=== PATIENT | female | born 1945 | race Caucasian/White ===

== ENCOUNTER 2019-01-05 22:26 | Observation (INO) ==
[2019-01-05] MEDS ORDERED: Bumetanide 1 MG/4 ML VIAL IVP ONE (23:07)
--- NOTE | 2019-01-05 23:11 | Emergency Department Note ---
Disposition Clinical Impression: Congestive heart failure Qualifiers: Heart failure type: diastolic Heart failure chronicity: acute on chronic Qualified Code(s): I50.33 - Acute on chronic diastolic (congestive) heart failure Disposition: Admitted As Inpatient Condition: Good Referrals: Carla Mo MD [Primary Care Provider] - Forms: ED Satisfaction Letter Time of Disposition: 00:42 SOB HPI - General Chief Complaint: ED Shortness of Breath/Dyspnea Stated Complaint: SOB /WATER RETENTION Time Seen by Provider: 01/05/19 22:51 Source: patient, family Mode of arrival: private vehicle Limitations: physical limitation Nursing Notes Reviewed: Yes Vital Signs Reviewed: Yes - History of Present Illness Patient presents to the ED complaining of fluid retention with lower extremity swelling and shortness of breath. States she has had progressive swelling in her legs over the past 2 weeks with a total of a 20 pound weight gain. She started feeling short of breath around 5 PM this evening. She denies any chest pain. She has a history of CHF and has been on Bumex 1 mg daily for approximately a year and a half with no dose changes. She states she tried taking 2 tablets at a time for a few days earlier this week but it did not seem to make a difference. She has not seen her primary care doctor. Family brought her to the ED this evening after she started having some shortness of breath. She denies any associated URI symptoms. No fever or chills. She denies any orthopnea or PND although she states she did have orthopnea when she was first diagnosed with CHF. History is notable for A. fib, high blood pressure, CHF, GERD and hyperlipidemia. She states she used to see Dr. Little and cardiology right after she was diagnosed with CHF and A. fib but has not seen him recently. Her PCP manages her Bumex and other medications. - Related Data Home Medications Medication Instructions Recorded Confirmed Atenolol [Tenormin] 25 mg PO BID 12/26/15 04/20/17 Hydrocodone/Acetaminophen [[place] 1 tab PO Q6H PRN 12/26/15 01/05/19 7.5-325 Tablet] Loratadine [Claritin] 10 mg PO DAILY PRN 12/26/15 01/05/19 Lovastatin [Mevacor] 20 mg PO HS 12/26/15 01/05/19 Oxybutynin Chloride [Ditropan Xl] 10 mg PO DAILY 12/26/15 01/05/19 Apixaban [Eliquis] 5 mg PO DAILY 06/09/17 01/05/19 Previous Rx's Medication Instructions Recorded Bumetanide [Bumex] 1 mg PO DAILY #30 tablet 04/21/17 Lisinopril [Zestril] 40 mg PO DAILY #30 tablet 04/21/17 Allergies Allergy/AdvReac Type Severity Reaction Status Date / Time codeine Allergy Difficulty Verified 01/05/19 22:29 Breathing Cortisone Allergy Rash Verified 01/05/19 22:29 prednisone Allergy Rash Verified 01/05/19 22:29 Constitutional: Denies: fever, chills, weakness, weight change Eyes: Denies: eye pain, eye discharge, vision change ENT ED: Denies: ear pain, throat pain, dental pain, hearing loss, epistaxis, congestion, dysphagia Cardiovascular: Reports: edema. Denies: chest pain, palpitations, dyspnea on exertion, syncope Respiratory: Reports: as per HPI, dyspnea. Denies: cough, wheezes, hemoptysis, stridor Gastrointestinal: Denies: abdominal pain, nausea, vomiting, diarrhea, constipation, hematemesis, melena, hematochezia Genitourinary: Denies: dysuria, frequency, hematuria, discharge Musculoskeletal: Denies: back pain, neck pain, arthralgia, myalgia Integumentary: Denies: rash, abrasion, lesions Neurological: Denies: headache, weakness, numbness, paresthesias, confusion, abnormal gait, vertigo Psychiatric: Denies: anxiety, depression, suicidal thoughts, homicidal thoughts, auditory hallucinations, visual hallucinations Endocrine: Denies: fatigue Hematological/Lymphatic: Denies: easy bleeding, easy bruising Allergic/Immunologic: Denies: facial swelling, urticaria Past Medical History - Past Medical History Medical history: Reports: atrial fibrillation, GERD, hyperlipidemia, hypertension Surgical history: Reports: other Psychiatric history: Reports: no psych history 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 - Social History Smoking Status: Never smoker Smokeless Tobacco Status: No Alcohol use: Reports: none Drug use: Reports: none Physical Exam - General Limitations: physical limitation General appearance: alert, in no apparent distress - Head Head exam: atraumatic, normocephalic, normal inspection - Eye Eye exam: Present: normal appearance, PERRL, EOMI - ENT ENT exam: normal exam, normal oropharynx, mucous membranes moist - Neck Neck exam: Present: normal inspection, full ROM, trachea midline - Chest Chest inspection: Present: normal inspection, symmetric chest wall rise - Respiratory Respiratory exam: Present: normal lung sounds bilaterally - Cardiovascular Cardiovascular exam: Present: regular rate, irregular rhythm, normal heart sounds - Abdominal Exam Abdominal exam: Present: soft, Non-Tender. Absent: tenderness, distention, guarding, rebound, rigidity - Extremities Exam Extremities exam: Present: normal inspection, full ROM, pedal edema (2+ to knees). Absent: tenderness - Neurological Exam Neurological exam: Present: alert, oriented X3 - Psychiatric Psychiatric exam: Present: normal affect, normal mood - Skin Skin exam: Present: warm, dry, intact, normal color Course Course Narrative: Agent presents to the ED at 2 weeks of progressive leg swelling now with some shortness of breath with a history of heart failure on Bumex. On arrival she is afebrile, hemodynamic stable and nontoxic in appearance. EKG on arrival shows simply rate-controlled A. fib at a rate of 71. Physical exam reveals significant edema in the legs but lungs are clear and she is not in any respiratory distress. Will obtain chest x-ray and lab work. We will give a dose of IV Bumex in the meantime. - Reevaluation(s) Reevaluation #1: Situation is cardiomegaly but no pulmonary edema. Laboratory studies show a normal troponin but an elevated BNP in the 300s. No other acute abnormalities. She has not started diuresing yet since receiving IV Bumex but I feel that she would benefit from admission with continued IV diuretics. Discussed this with patient family and she is in agreement. I spoke to the hospital some call, Dr. Bla who has agreed to accept the patient. Time: 00:37 Vital Signs Temperature 98.8 F 01/05/19 22:31 Pulse Rate 66 01/05/19 22:31 Respiratory Rate 24 01/05/19 22:31 Blood Pressure 153/74 01/05/19 22:31 O2 Sat by Pulse Oximetry 97 01/05/19 22:31 Temperature 98.7 F 01/05/19 23:28 Pulse Rate 68 01/05/19 23:28 Respiratory Rate 20 01/05/19 23:28 Blood Pressure 134/78 01/05/19 23:28 O2 Sat by Pulse Oximetry 98 01/05/19 23:28 Oxygen Delivery Oxygen Delivery Room Air Shortness of Breath/Dyspnea - Differential Diagnosis Likely: congestive heart failure - Medical Records Medical records reviewed: Yes I reviewed the patient's medical records. - Lab Data Lab results reviewed: Yes I reviewed the patient's lab results. Result diagrams: 01/05/19 23:10 01/05/19 23:10 Lab Results 01/05/19 01/05/19 01/05/19 Range/Units 23:10 23:10 23:10 WBC 6.8 (4.3-11.1) K/mcL RBC 4.22 (3.82-4.97) M/mcL Hgb 12.6 (11.5-15.4) g/dL Hct 40.3 (35.3-44.9) % MCV 95.5 (83.0-100.0) fL MCH 29.9 (28.0-33.3) pg MCHC 31.3 L (31.6-35.5) g/dL RDW 13.1 (11.5-14.5) % Plt Count 139 L (140-400) K/mcL MPV 11.2 (9.4-12.4) fL Immature Gran % 0.3 (0-4) % Seg Neutrophils % 64.6 % Lymphocytes % 28.1 % Monocytes % 5.4 % Eosinophils % 1.0 % Basophils % 0.6 % Neutrophils # 4.4 (1.6-8.9) K/mcL Lymphocytes # 1.9 (0.6-4.6) K/mcL Monocytes # 0.4 (0.0-1.3) K/mcL Eosinophils # 0.1 (0.0-0.6) K/mcL Basophils # 0.0 (0.0-0.2) K/mcL PT (9.4-12.1) Seconds INR Sodium 141 (136-145) mEq/L Potassium 4.4 (3.5-5.1) mEq/L Chloride 106 (98-107) mEq/L Carbon Dioxide 29 (23-29) mEq/L BUN 36 H (8-23) mg/dL Creatinine 1.16 (0.60-1.20) mg/dL Est GFR ( Amer) 56 L (> 60) Est GFR (Non-Af Amer) 46 L (> 60) BUN/Creatinine Ratio 31 H (6-26) Glucose 139 H (70-105) mg/dL Calculated Osmolality 303 H (280-300) Calcium 9.7 (8.6-10.3) mg/dL Total Bilirubin 0.4 (0.3-1.0) mg/dL AST 15 (13-39) Units/L ALT 11 (7-52) Units/L Alkaline Phosphatase 60 (34-104) Units/L Troponin I < 0.03 (< 0.04) ng/mL B-Natriuretic Peptide (Less than 100) pg/mL Serum Total Protein 6.5 (6.4-8.9) g/dL Albumin 4.0 (3.5-5.7) g/dL Globulin 2.5 (2.4-3.5) g/dL Albumin/Globulin Ratio 1.6 (1.1-2.2) 01/05/19 01/05/19 Range/Units 23:10 23:10 WBC (4.3-11.1) K/mcL RBC (3.82-4.97) M/mcL Hgb (11.5-15.4) g/dL Hct (35.3-44.9) % MCV (83.0-100.0) fL MCH (28.0-33.3) pg MCHC (31.6-35.5) g/dL RDW (11.5-14.5) % Plt Count (140-400) K/mcL MPV (9.4-12.4) fL Immature Gran % (0-4) % Seg Neutrophils % % Lymphocytes % % Monocytes % % Eosinophils % % Basophils % % Neutrophils # (1.6-8.9) K/mcL Lymphocytes # (0.6-4.6) K/mcL Monocytes # (0.0-1.3) K/mcL Eosinophils # (0.0-0.6) K/mcL Basophils # (0.0-0.2) K/mcL PT 15.0 H (9.4-12.1) Seconds INR 1.3 Sodium (136-145) mEq/L Potassium (3.5-5.1) mEq/L Chloride (98-107) mEq/L Carbon Dioxide (23-29) mEq/L BUN (8-23) mg/dL Creatinine (0.60-1.20) mg/dL Est GFR ( Amer) (> 60) Est GFR (Non-Af Amer) (> 60) BUN/Creatinine Ratio (6-26) Glucose (70-105) mg/dL Calculated Osmolality (280-300) Calcium (8.6-10.3) mg/dL Total Bilirubin (0.3-1.0) mg/dL AST (13-39) Units/L ALT (7-52) Units/L Alkaline Phosphatase (34-104) Units/L Troponin I (< 0.04) ng/mL B-Natriuretic Peptide 309 H (Less than 100) pg/mL Serum Total Protein (6.4-8.9) g/dL Albumin (3.5-5.7) g/dL Globulin (2.4-3.5) g/dL Albumin/Globulin Ratio (1.1-2.2) - Radiology Data Radiology results reviewed: Yes I reviewed the patient's radiology results. ITS Impressions Chest X-Ray 01/05/19 22:43 IMPRESSION: No acute abnormality detected. D/ / Parrish Balderas MD / Parrish Balderas MD Interpreting Provider: Parrish Balderas MD - EKG Data EKG attestation: Yes I reviewed and interpreted this EKG. Rate: Reports: normal Rhythm: Reports: A.Fib Voltage: Reports: decreased voltage throughout Interpretation: Reports: no acute changes
[2019-01-05 23:25] LABS: Basophils % 0.6 %; Eosinophils # 0.1 K/mcL (0.0-0.6); Hematocrit 40.3 % (35.3-44.9); Hemoglobin 12.6 g/dL (11.5-15.4); Immature Granulocytes % 0.3 % (0-4); Lymphocytes # 1.9 K/mcL (0.6-4.6); Lymphocytes % 28.1 %; Mean Corpuscular HGB Conc 31.3 g/dL (31.6-35.5); Mean Corpuscular Hemoglobin 29.9 pg (28.0-33.3); Mean Corpuscular Volume 95.5 fL (83.0-100.0); Mean Platelet Volume 11.2 fL (9.4-12.4); Monocytes # 0.4 K/mcL (0.0-1.3); Monocytes % 5.4 %; Neutrophils # 4.4 K/mcL (1.6-8.9); Platelet Count 139 K/mcL (140-400); Red Blood Count 4.22 M/mcL (3.82-4.97); Red Cell Distribution Width 13.1 % (11.5-14.5); Segmented Neutrophils % 64.6 %; White Blood Count 6.8 K/mcL (4.3-11.1)
[2019-01-05 23:43] LABS: Albumin/Globulin Ratio 1.6 (1.1-2.2); Bilirubin,Total 0.4 mg/dL (0.3-1.0); Calcium 9.7 mg/dL (8.6-10.3); Globulin 2.5 g/dL (2.4-3.5); Potassium 4.4 mEq/L (3.5-5.1); Total Protein 6.5 g/dL (6.4-8.9)
[2019-01-05 23:50] LABS: INR 1.3
[2019-01-06] MEDS ORDERED: Naloxone 0.4 MG/ML INJ IVP PRN ×2 (00:38→01:13)
[2019-01-06] MEDS ORDERED: Loratadine 10 MG TABLET PO PRN (01:13)
[2019-01-06] MEDS ORDERED: *HR* HYDROcodone/Acet 7.5/325 mg TABLET PO PRN (01:13)
[2019-01-06] MEDS ORDERED: Lisinopril 20 MG TABLET PO SCH (09:00)
[2019-01-06] MEDS ORDERED: Apixaban 5 MG TABLET PO SCH (09:00)
[2019-01-06 10:34] VITALS: BP 153/63
--- NOTE | 2019-01-06 14:26 | Internal Med History&Physical ---
Date of Encounter: 01/06/19 Time of Encounter: 13:50 Assessment and Plan (1) Congestive heart failure Current visit: Yes Status: Chronic She was given IV Lasix on admission. Lisinopril and beta francesco will be continued. Imdur will be added. Qualifiers: Heart failure type: diastolic Heart failure chronicity: acute on chronic Qualified Code(s): I50.33 - Acute on chronic diastolic (congestive) heart failure (2) CKD (chronic kidney disease) stage 3, GFR 30-59 ml/min Current visit: Yes Status: Chronic Estimated GFR minimally changed since May 2017 hospitalization. (3) Hypertension Current visit: No Status: Chronic Continue lisinopril and Tenormin. Qualifiers: Hypertension type: essential hypertension Qualified Code(s): I10 - Essential (primary) hypertension Internal Medicine - H&P: HPI Chief complaint: Dyspnea, edema Admitted From: Emergency Dept Plans for Post Hospital Care: Home History of present illness: Ms. Smith is a 73 year old female who came to emergency room stating she had onset of worsening edema approximately 2 weeks earlier. She used occasional additional Bumex with minimal relief. She reports developing dyspnea ap proximately 5 PM the day of admission. When symptoms did not improve after a few hours she came to emergency room. She was felt to have exacerbation of heart failure and was admitted to [facility] floor for ongoing care needs. Cardiac history is pertinent for hypertension. Echocardiogram 04/21/2017 showed LVEF of 55-60%. The interventricular septum and posterior wall thickness measurements were elevated at 1.40 cm. each. E/A ratio was 0.9. Regadenoson EST 05/14/2017 showed LVEF of 70% with no EKG or perfusion evidence of ischemia. She denies DVT or pulmonary embolus. She states she feels significantly improved at the present time and wishes to be discharged home. Past Med Surg Social Fam HX - Past Medical History Medical history: atrial fibrillation, GERD, hyperlipidemia, hypertension Psychiatric history: no psych history - Past Surgical History Surgical History: other Additional surgical history: tubal - Social History Smoking Status: Never smoker Smokeless Tobacco Status: No Alcohol use: none Drug use: none - Family History Father Living Status: Cause of : Lung Ca. Hx Family Cancer: Yes Hx Family Endocrine Disorder: Yes (DM) Brother Hx Family Endocrine Disorder: Yes (DM) Internal Medicine - H&P: Meds Atenolol [Tenormin] 25 mg PO BID 12/26/15 [History] Hydrocodone/Acetaminophen [[place] 7.5-325 Tablet] 1 tab PO Q6H PRN 12/26/15 [History] Loratadine [Claritin] 10 mg PO DAILY PRN 12/26/15 [History] Lovastatin [Mevacor] 20 mg PO HS 12/26/15 [History] Oxybutynin Chloride [Ditropan Xl] 10 mg PO DAILY 12/26/15 [History] Bumetanide [Bumex] 1 mg PO DAILY #30 tablet 04/21/17 [Rx] Lisinopril [Zestril] 40 mg PO DAILY #30 tablet 04/21/17 [Rx] Apixaban [Eliquis] 5 mg PO DAILY 06/09/17 [History] Allergy/AdvReac Type Severity Reaction Status Date / Time codeine Allergy Difficulty Verified 01/05/19 22:29 Breathing Cortisone Allergy Rash Verified 01/05/19 22:29 prednisone Allergy Rash Verified 01/05/19 22:29 All Systems PM: A 10-system review of systems was performed and is negative for pertinent findings except as documented above in the HPI. Review of systems: Gen.: Her weight is increased from 135.17 kg on 04/20/2017 to 141.84 kg today. Cardiovascular: As per history of present illness Respiratory: She is a lifelong nonsmoker and has no known chronic lung disease GI: She denies disorders of her liver gallbladder or exocrine pancreas : She denies hematuria dysuria or kidney stones. She has had frequent UTIs Neurologic: She denies large distribution strokes or seizures Endocrine: She has hyperlipidemia but denies diabetes or thyroid disease Hematology/oncology: She denies blood disorders cancers or anemia Psychiatric: She denies anxiety depression or other mental health issues [place] skeletal: She has DJD but denies gout or other bone joint or muscle disorders. - Constitutional Vitals: Temp Pulse Resp BP Pulse Ox 97.8 F 75 18 153/63 96 01/06/19 10:33 01/06/19 10:33 01/06/19 10:33 01/06/19 10:33 01/06/19 10:33 Exam: Gen.: She is a well-developed overweight female lying in bed who appears in no acute distress at present time. She denies pain or dyspnea. HEENT: Head is atraumatic and normocephalic. Eyes: EOMI. There is no scleral icterus. Mouth: Mucosa is moist. Neck: Supple and nontender. There is no thyromegaly or adenopathy noted. Heart: Regular without murmurs gallops or ectopics Lungs: No wheezes or crackles are heard. Abdomen: Soft and nontender. No masses or guarding are noted. Extremities: She has significant adiposity of her legs and feet. There is trace to 1+ pitting edema of the dorsum of the feet bilaterally. Dorsalis pedis and posterior tibial pulses are nonpalpable. She has mild DJD changes of her hands. Neurologic: Mental status: She is talkative and a good historian. Cranial nerves: Smile is symmetric. Forehead wrinkles bilaterally. Tongue protrudes midline. EOMI. Motor: There is no pronator drift. Cerebellar: Finger to nose is intact bilaterally. Skin: Warm and dry Internal Med - H&P Results - Labs CBC & Chem 7: 01/05/19 23:10 01/05/19 23:10 Labs: Short CBC 01/05/19 Range/Units 23:10 WBC 6.8 (4.3-11.1) K/mcL Hgb 12.6 (11.5-15.4) g/dL Hct 40.3 (35.3-44.9) % Plt Count 139 L (140-400) K/mcL Neutrophils # 4.4 (1.6-8.9) K/mcL BMP 01/05/19 23:10 Sodium 141 Potassium 4.4 Chloride 106 Carbon Dioxide 29 BUN 36 H Creatinine 1.16 Glucose 139 H Calcium 9.7 Cardiac Enzymes 01/05/19 Range/Units 23:10 Troponin I < 0.03 (< 0.04) ng/mL Liver Function 01/05/19 Range/Units 23:10 Total Bilirubin 0.4 (0.3-1.0) mg/dL AST 15 (13-39) Units/L ALT 11 (7-52) Units/L Alkaline Phosphatase 60 (34-104) Units/L Albumin 4.0 (3.5-5.7) g/dL - Impressions ITS Impressions Chest X-Ray 01/05/19 22:43 IMPRESSION: No acute abnormality detected. D/ / Parrish Balderas MD / Parrish Balderas MD Interpreting Provider: Parrish Balderas MD - VTE Reasons for not Prescribing Prophylaxis: Not indicated-Anticoagulated or INR therapeutic
--- NOTE | 2019-01-06 14:36 | Discharge Summary ---
Orders not resulted at time of discharge: Pending orders 01/05/19 22:44 EKG [ECG 12 lead ECG] [ECG] Stat Date of Encounter: 01/06/19 Time of Encounter: 13:50 - Discharge Diagnosis (1) Congestive heart failure Priority: Primary Status: Chronic Qualifiers: Heart failure type: diastolic Heart failure chronicity: acute on chronic Qualified Code(s): I50.33 - Acute on chronic diastolic (congestive) heart failure (2) CKD (chronic kidney disease) stage 3, GFR 30-59 ml/min Priority: Secondary Status: Chronic (3) Hypertension Priority: Secondary Status: Chronic Qualifiers: Hypertension type: essential hypertension Qualified Code(s): I10 - Essential (primary) hypertension Hospital course: Ms. Smith is a 73 year old female who came to emergency room stating she had onset of worsening edema approximately 2 weeks earlier. She used occasional additional Bumex with minimal relief. She reports developing dyspnea approximately 5 PM the day of admission. When symptoms did not improve after a few hours she came to emergency room. She was felt to have exacerbation of heart failure and was admitted to [facility] for ongoing care needs. Initial orders were written by the emergency room physician. I saw her on January 06 and performed a history and physical and discharge. She was given a dose of IV Lasix and had over 2500 mL urine output. Her dyspnea resolved and she reported decrease in her leg edema. When I saw her the afternoon of January 06 she reported feeling significantly improved and wished to be discharged home which I felt was reasonable. She will be started on Imdur and continue her other cardiac medications. I told her she should check her blood pressure periodically at home and her PCP Dr. Mo can adjust medication doses as needed to assist blood pressure and heart failure control. I encouraged her to keep her feet elevated while at rest and follow a low-sodium diet. She will follow with her PCP Dr. Mo within 1 week. - Time Spent with Patient Total time spent providing and/or coordinating discharge services: - Discharge Medications Prescriptions: New Isosorbide MONOnitrate (24 HR) [Imdur] 30 mg PO DAILY #30 tab.er.24h Continued Lovastatin [Mevacor] 20 mg PO HS Loratadine [Claritin] 10 mg PO DAILY PRN PRN Reason: Allergy Symptoms Atenolol [Tenormin] 25 mg PO BID Hydrocodone/Acetaminophen [[place] 7.5-325 Tablet] 1 tab PO Q6H PRN PRN Reason: Pain Oxybutynin Chloride [Ditropan Xl] 10 mg PO DAILY Apixaban [Eliquis] 5 mg PO DAILY Bumetanide [Bumex] 1 mg PO DAILY #30 tablet Lisinopril [Zestril] 40 mg PO DAILY #30 tablet Home Medications: Atenolol [Tenormin] 25 mg PO BID 12/26/15 [History] Hydrocodone/Acetaminophen [[place] 7.5-325 Tablet] 1 tab PO Q6H PRN 12/26/15 [History] Loratadine [Claritin] 10 mg PO DAILY PRN 12/26/15 [History] Lovastatin [Mevacor] 20 mg PO HS 12/26/15 [History] Oxybutynin Chloride [Ditropan Xl] 10 mg PO DAILY 12/26/15 [History] Bumetanide [Bumex] 1 mg PO DAILY #30 tablet 04/21/17 [Rx] Lisinopril [Zestril] 40 mg PO DAILY #30 tablet 04/21/17 [Rx] Apixaban [Eliquis] 5 mg PO DAILY 06/09/17 [History] Isosorbide MONOnitrate (24 HR) [Imdur] 30 mg PO DAILY #30 tab.er.24h 01/06/19 [Rx] Allergies/Adverse Reactions: Allergy/AdvReac Type Severity Reaction Status Date / Time codeine Allergy Difficulty Verified 01/05/19 22:29 Breathing Cortisone Allergy Rash Verified 01/05/19 22:29 prednisone Allergy Rash Verified 01/05/19 22:29 Date of admission: 01/06/19 00:43 Primary care physician: Carla Mo - Constitutional Vitals: Temp Pulse Resp BP Pulse Ox 97.8 F 75 18 153/63 96 01/06/19 10:33 01/06/19 10:33 01/06/19 10:33 01/06/19 10:33 01/06/19 10:33 - Patient Status Disposition: Home, Self-Care Condition: Good - Discharge Instructions Follow Up With: Carla Mo MD [Primary Care Provider] - 1 week - Diet and Activity Activity: resume usual activities as tolerated Diet: low salt diet - VTE Reasons for not Prescribing Prophylaxis: Not indicated-Anticoagulated or INR therapeutic
--- NOTE | 2019-01-10 15:54 | Electrocardiograph Report ---
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
== END 2019-01-06 15:23 | disposition home or self-care (01) ==
LOC: INPPIK 22:26 → EMEROOPIK 22:26 → INPPIK 01-06 01:06
PROVIDERS: ADMIT Internal Medicine; ATTEND Internal Medicine

== ENCOUNTER 2020-10-31 14:19 | Inpatient (IN) ==
[2020-10-31] MEDS ORDERED: Piperacillin/Tazobactam 3.375 GM in Water for inj. (sterile) 20 ML IVP ONE (14:55)
[2020-10-31] MEDS ORDERED: 0.9 % Sodium Chloride 500 ML IVC ONE (14:57)
[2020-10-31] MEDS ORDERED: *HR* FentaNYL (PF) 100 MCG/2 ML VIAL IVP ONE (14:58)
[2020-10-31] MEDS ORDERED: Vancomycin 2,000 MG/520 ML IV.SOLN IVPB ONE (15:00)
[2020-10-31 15:09] LABS: Bilirubin,Urine Negative (Negative); Blood,Urine Negative (Negative); Clarity,Urine Clear (Clear); Color,Urine Yellow (Yellow); Glucose,Urine (UA) Normal (Normal); Ketones,Urine Negative (Negative); Leukocyte Esterase,Urine Trace (Negative); Nitrite,Urine Negative (Negative); PH,Urine 5.5 pH Units (5.0-8.0); Protein,Urine Negative (Neg-Trace); Urobilinogen,Urine Normal (Normal)
[2020-10-31 15:13] LABS: Bacteria,Urine Few per hpf (None-Few); Mucus,Urine Few per lpf (None-Few); Squamous Epithelial Cell,Urine Few per hpf (None-Few); WBC,Urine 0-3 per hpf (0-3)
[2020-10-31 15:21] LABS: Basophils % 0.2 %; Eosinophils % 0.2 %; Hematocrit 40.7 % (35.3-44.9); Hemoglobin 12.7 g/dL (11.5-15.4); Immature Granulocytes % 0.3 % (0-4); Lymphocytes % 9.4 %; Mean Corpuscular HGB Conc 31.2 g/dL (31.6-35.5); Mean Corpuscular Volume 96.2 fL (83.0-100.0); Mean Platelet Volume 11.5 fL (9.4-12.4); Monocytes # 0.3 K/mcL (0.0-1.3); Monocytes % 2.8 %; Neutrophils # 9.6 K/mcL (1.6-8.9); Platelet Count 122 K/mcL (140-400); Red Blood Count 4.23 M/mcL (3.82-4.97); Red Cell Distribution Width 13.1 % (11.5-14.5); Segmented Neutrophils % 87.1 %
[2020-10-31 15:24] LABS: VBG HCO3 26 mEq/L (21-27); VBG PCO2 43 mmHg (41-51); VBG PH 7.38 pH Units (7.32-7.42); VBG PO2 21 mmHg (25-50)
[2020-10-31 15:30] LABS: INR 1.4
[2020-10-31 15:33] LABS: Activated Partial Thrombo Time 31.4 Seconds (26.0-36.0)
[2020-10-31 15:42] LABS: Alanine Aminotransferase 12 Units/L (7-52); Albumin 4.2 g/dL (3.5-5.7); Albumin/Globulin Ratio 1.5 (1.1-2.2); Alkaline Phosphatase 59 Units/L (34-104); Aspartate Amino Transferase 14 Units/L (13-39); BUN/Creatinine Ratio 26 (6-26); Bilirubin,Direct 0.2 mg/dL (0.0-0.2); Bilirubin,Indirect 0.8 mg/dL (0.0-1.0); Blood Urea Nitrogen 36 mg/dL (8-23); Calcium 10.1 mg/dL (8.6-10.3); Carbon Dioxide 25 mEq/L (23-29); Chloride 107 mEq/L (98-107); Globulin 2.8 g/dL (2.4-3.5); Glucose 165 mg/dL (70-105); Magnesium 1.7 mg/dL (1.6-2.6); Osmolality,Calculated 302 (280-300); Phosphorous 1.7 mg/dL (2.7-4.5); Potassium 5.1 mEq/L (3.5-5.1); Sodium 140 mEq/L (136-145); Troponin I < 0.03 ng/mL (< 0.04); eGFR For African Americans 46 (> 60); eGFR For Non-African Americans 38 (> 60)
[2020-10-31] MEDS ORDERED: Naloxone 0.4 MG/ML INJ IVP PRN (16:30)
[2020-10-31] MEDS ORDERED: Ondansetron 4 MG/2 ML VIAL IVP PRN (16:30)
[2020-10-31] MEDS ORDERED: Loratadine 10 MG TABLET PO PRN (16:37)
[2020-10-31] MEDS: Apixaban 5 MG TABLET PO SCH (20:46)
[2020-10-31] MEDS: atenoloL 25 MG TABLET PO SCH (20:47)
[2020-10-31] MEDS: *HR* HYDROcodone/Acet 7.5/325 mg TABLET PO PRN (20:54)
[2020-11-01 05:16] LABS: Basophils % 0.2 %; Eosinophils % 0.1 %; Hematocrit 36.5 % (35.3-44.9); Hemoglobin 11.4 g/dL (11.5-15.4); Immature Granulocytes % 0.6 % (0-4); Lymphocytes # 1.1 K/mcL (0.6-4.6); Mean Corpuscular HGB Conc 31.2 g/dL (31.6-35.5); Mean Corpuscular Hemoglobin 30.3 pg (28.0-33.3); Mean Corpuscular Volume 97.1 fL (83.0-100.0); Monocytes # 0.4 K/mcL (0.0-1.3); Monocytes % 4.6 %; Neutrophils # 7.1 K/mcL (1.6-8.9); Platelet Count 101 K/mcL (140-400); Red Blood Count 3.76 M/mcL (3.82-4.97); Red Cell Distribution Width 13.6 % (11.5-14.5); Segmented Neutrophils % 81.5 %; White Blood Count 8.7 K/mcL (4.3-11.1)
[2020-11-01 05:32] LABS: Calcium 9.3 mg/dL (8.6-10.3); Magnesium 1.9 mg/dL (1.6-2.6); Phosphorous 2.7 mg/dL (2.7-4.5); Potassium 4.7 mEq/L (3.5-5.1)
[2020-11-01] MEDS: *HR* HYDROcodone/Acet 7.5/325 mg TABLET PO PRN ×2 (06:48→20:10)
[2020-11-01] MEDS: atenoloL 25 MG TABLET PO SCH ×2 (08:57→20:11)
[2020-11-01] MEDS: Potassium Chloride Elixir 20 MEQ/15 ML UDC PO SCH (08:57)
[2020-11-01] MEDS: lisinopriL 20 MG TABLET PO SCH (08:57)
[2020-11-01] MEDS: Isosorbide MONOnitrate (24 HR) 30 MG TAB.ER.24H PO SCH (08:57)
[2020-11-01] MEDS: Bumetanide 1 MG TABLET PO SCH (08:57)
[2020-11-01] MEDS: Apixaban 5 MG TABLET PO SCH ×2 (08:57→20:11)
[2020-11-01] MEDS: Fluticasone Propionate Nasal 50 MCG/SPRAY BOTTLE NS SCH (08:58)
[2020-11-01] MEDS ORDERED: Piperacillin/Tazobactam 3.375 GM in 0.9 % Sodium Chloride Mini Bag 100 ML IVPB SCH (11:30)
[2020-11-01] MEDS: Acetaminophen 325 MG TABLET PO PRN (11:43)
[2020-11-01] MEDS ORDERED: Vancomycin 2,000 MG/520 ML IV.SOLN IVPB SCH (16:00)
[2020-11-01] MEDS: Piperacillin/Tazobactam 3.375 GM in 0.9 % Sodium Chloride Mini Bag 100 ML IVPB SCH (20:11)
[2020-11-02] MEDS: Piperacillin/Tazobactam 3.375 GM in 0.9 % Sodium Chloride Mini Bag 100 ML IVPB SCH (05:09)
[2020-11-02] MEDS: *HR* HYDROcodone/Acet 7.5/325 mg TABLET PO PRN ×2 (05:24→12:02)
[2020-11-02] MEDS: Potassium Chloride Elixir 20 MEQ/15 ML UDC PO SCH (07:37)
[2020-11-02] MEDS: Bumetanide 1 MG TABLET PO SCH (07:37)
[2020-11-02] MEDS: Isosorbide MONOnitrate (24 HR) 30 MG TAB.ER.24H PO SCH (07:37)
[2020-11-02] MEDS: Apixaban 5 MG TABLET PO SCH ×2 (07:37→20:26)
[2020-11-02] MEDS: Fluticasone Propionate Nasal 50 MCG/SPRAY BOTTLE NS SCH (07:38)
[2020-11-02] MEDS: lisinopriL 20 MG TABLET PO SCH (07:38)
[2020-11-02] MEDS: atenoloL 25 MG TABLET PO SCH ×2 (07:39→20:26)
[2020-11-02 07:44] LABS: Basophils % 0.2 %; Eosinophils % 0.3 %; Hematocrit 34.7 % (35.3-44.9); Hemoglobin 10.9 g/dL (11.5-15.4); Immature Granulocytes % 0.5 % (0-4); Lymphocytes # 1.2 K/mcL (0.6-4.6); Lymphocytes % 12.3 %; Mean Corpuscular HGB Conc 31.4 g/dL (31.6-35.5); Mean Corpuscular Hemoglobin 29.8 pg (28.0-33.3); Mean Corpuscular Volume 94.8 fL (83.0-100.0); Mean Platelet Volume 11.8 fL (9.4-12.4); Monocytes # 0.5 K/mcL (0.0-1.3); Monocytes % 5.1 %; Neutrophils # 7.9 K/mcL (1.6-8.9); Red Blood Count 3.66 M/mcL (3.82-4.97); Red Cell Distribution Width 13.1 % (11.5-14.5); Segmented Neutrophils % 81.6 %; White Blood Count 9.6 K/mcL (4.3-11.1)
[2020-11-02 08:05] LABS: Calcium 9.1 mg/dL (8.6-10.3)
[2020-11-02 08:10] LABS: Platelet Count 98 K/mcL (140-400)
[2020-11-02] MEDS: Sulfamethoxazole/Trimeth DS 1 EACH TABLET PO SCH (20:26)
[2020-11-02] MEDS: Doxycycline 100 MG CAPSULE PO SCH (20:26)
[2020-11-02] MEDS: Acetaminophen 325 MG TABLET PO PRN (22:44)
[2020-11-02] MEDS ORDERED: 0.9 % Sodium Chloride 1,000 ML IVC ONE ×2 (22:46→23:22)
[2020-11-03] MEDS: Apixaban 5 MG TABLET PO SCH ×2 (09:31→20:46)
[2020-11-03] MEDS: Potassium Chloride Elixir 20 MEQ/15 ML UDC PO SCH (09:31)
[2020-11-03] MEDS: lisinopriL 20 MG TABLET PO SCH (09:31)
[2020-11-03] MEDS: Isosorbide MONOnitrate (24 HR) 30 MG TAB.ER.24H PO SCH (09:31)
[2020-11-03] MEDS: Bumetanide 1 MG TABLET PO SCH (09:31)
[2020-11-03] MEDS: atenoloL 25 MG TABLET PO SCH ×2 (09:31→20:46)
[2020-11-03] MEDS: Doxycycline 100 MG CAPSULE PO SCH ×2 (09:31→20:46)
[2020-11-03] MEDS: Sulfamethoxazole/Trimeth DS 1 EACH TABLET PO SCH ×2 (09:31→20:46)
[2020-11-03] MEDS: Fluticasone Propionate Nasal 50 MCG/SPRAY BOTTLE NS SCH (09:35)
[2020-11-03] MEDS: *HR* HYDROcodone/Acet 7.5/325 mg TABLET PO PRN (20:46)
[2020-11-04 08:05] LABS: Basophils % 0.2 %; Eosinophils # 0.1 K/mcL (0.0-0.6); Eosinophils % 1.6 %; Hematocrit 35.6 % (35.3-44.9); Hemoglobin 11.2 g/dL (11.5-15.4); Immature Granulocytes % 0.5 % (0-4); Lymphocytes # 1.1 K/mcL (0.6-4.6); Lymphocytes % 18.1 %; Mean Corpuscular HGB Conc 31.5 g/dL (31.6-35.5); Mean Corpuscular Hemoglobin 29.9 pg (28.0-33.3); Mean Corpuscular Volume 94.9 fL (83.0-100.0); Mean Platelet Volume 11.4 fL (9.4-12.4); Monocytes # 0.5 K/mcL (0.0-1.3); Monocytes % 7.1 %; Neutrophils # 4.6 K/mcL (1.6-8.9); Platelet Count 120 K/mcL (140-400); Red Blood Count 3.75 M/mcL (3.82-4.97); Red Cell Distribution Width 12.7 % (11.5-14.5); Segmented Neutrophils % 72.5 %; White Blood Count 6.3 K/mcL (4.3-11.1)
[2020-11-04] MEDS: Potassium Chloride Elixir 20 MEQ/15 ML UDC PO SCH (08:05)
[2020-11-04] MEDS: Doxycycline 100 MG CAPSULE PO SCH (08:06)
[2020-11-04] MEDS: Apixaban 5 MG TABLET PO SCH (08:06)
[2020-11-04] MEDS: lisinopriL 20 MG TABLET PO SCH (08:06)
[2020-11-04] MEDS: Sulfamethoxazole/Trimeth DS 1 EACH TABLET PO SCH (08:06)
[2020-11-04] MEDS: atenoloL 25 MG TABLET PO SCH (08:06)
[2020-11-04] MEDS: Isosorbide MONOnitrate (24 HR) 30 MG TAB.ER.24H PO SCH (08:06)
[2020-11-04] MEDS: Bumetanide 1 MG TABLET PO SCH (08:07)
[2020-11-04] MEDS: Fluticasone Propionate Nasal 50 MCG/SPRAY BOTTLE NS SCH (08:07)
[2020-11-04 08:32] LABS: Calcium 9.4 mg/dL (8.6-10.3)
[2020-11-04 14:45] VITALS: BP 98/60
== END 2020-11-04 16:45 | disposition home health service (06) | DRG 603 ==
LOC: EMEROOPIK 14:19 → INPPIK 14:19
PROVIDERS: ADMIT Family Medicine; ATTEND Family Medicine

== ENCOUNTER 2020-11-14 06:20 | Observation (INO) ==
[2020-11-14 06:58] LABS: Basophils % 0.4 %; Eosinophils % 0.3 %; Hematocrit 37.4 % (35.3-44.9); Hemoglobin 11.9 g/dL (11.5-15.4); Immature Granulocytes % 0.4 % (0-4); Lymphocytes # 1.2 K/mcL (0.6-4.6); Lymphocytes % 10.6 %; Mean Corpuscular HGB Conc 31.8 g/dL (31.6-35.5); Mean Corpuscular Hemoglobin 29.9 pg (28.0-33.3); Mean Platelet Volume 11.1 fL (9.4-12.4); Monocytes # 0.4 K/mcL (0.0-1.3); Monocytes % 3.9 %; Platelet Count 251 K/mcL (140-400); Red Blood Count 3.98 M/mcL (3.82-4.97); Segmented Neutrophils % 84.4 %; White Blood Count 11.3 K/mcL (4.3-11.1)
[2020-11-14 07:00] LABS: Basophils # 0.1 K/mcL (0.0-0.2); Neutrophils # 9.5 K/mcL (1.6-8.9)
[2020-11-14 07:17] LABS: Albumin 3.3 g/dL (3.5-5.7); Albumin/Globulin Ratio 1.2 (1.1-2.2); Bilirubin,Total 0.9 mg/dL (0.3-1.0); Globulin 2.8 g/dL (2.4-3.5); Potassium 4.6 mEq/L (3.5-5.1); Total Protein 6.1 g/dL (6.4-8.9)
[2020-11-14 07:31] LABS: Bilirubin,Urine Negative (Negative); Blood,Urine Negative (Negative); Clarity,Urine Clear (Clear); Color,Urine Yellow (Yellow); Glucose,Urine (UA) Normal (Normal); Ketones,Urine Negative (Negative); Leukocyte Esterase,Urine Negative (Negative); Nitrite,Urine Negative (Negative); Protein,Urine Negative (Neg-Trace); Urobilinogen,Urine Normal (Normal)
[2020-11-14] MEDS ORDERED: 0.9 % Sodium Chloride 1,000 ML IVC ONE (08:03)
[2020-11-14] MEDS ORDERED: Naloxone 0.4 MG/ML INJ IVP PRN (08:21)
[2020-11-14 08:30] LABS: Amylase 13 Units/L (29-103); Lipase 18 Units/L (11-82)
[2020-11-14] MEDS: Ondansetron 4 MG/2 ML VIAL IVP PRN (15:41)
[2020-11-14] MEDS: Ringers Solution, Lactated 1,000 ML IVC SCH (15:48)
[2020-11-14] MEDS: *HR* Heparin 5,000 UNIT/ML VIAL SQ SCH ×2 (15:50→21:23)
[2020-11-15] MEDS: Ringers Solution, Lactated 1,000 ML IVC SCH (03:40)
[2020-11-15 04:10] LABS: Hematocrit 34.3 % (35.3-44.9); Hemoglobin 10.8 g/dL (11.5-15.4); Mean Corpuscular HGB Conc 31.5 g/dL (31.6-35.5); Mean Corpuscular Hemoglobin 30.2 pg (28.0-33.3); Mean Corpuscular Volume 95.8 fL (83.0-100.0); Mean Platelet Volume 11.4 fL (9.4-12.4); Platelet Count 197 K/mcL (140-400); Red Blood Count 3.58 M/mcL (3.82-4.97); Red Cell Distribution Width 13.2 % (11.5-14.5); White Blood Count 8.2 K/mcL (4.3-11.1)
[2020-11-15 04:27] LABS: Calcium 9.1 mg/dL (8.6-10.3); Magnesium 1.8 mg/dL (1.6-2.6); Potassium 4.5 mEq/L (3.5-5.1)
[2020-11-15] MEDS: *HR* Heparin 5,000 UNIT/ML VIAL SQ SCH ×2 (05:18→15:44)
[2020-11-15 07:19] VITALS: BP 119/60
[2020-11-15] MEDS: Ondansetron 4 MG/2 ML VIAL IVP PRN (11:03)
[2020-11-15] MEDS ORDERED: *HR* LORazepam 1 MG TABLET PO ONE (11:14)
== END 2020-11-15 16:35 | disposition other institution (70) ==
LOC: EMEROOPIK 06:20 → INPPIK 06:20
PROVIDERS: ADMIT Family Medicine; ATTEND Family Medicine

== ENCOUNTER 2020-11-15 12:25 | Inpatient (IN) ==
[2020-11-16 07:21] LABS: Basophils % 0.5 %; Eosinophils # 0.1 K/mcL (0.0-0.6); Eosinophils % 1.5 %; Hematocrit 37.7 % (35.3-44.9); Hemoglobin 11.5 g/dL (11.5-15.4); Immature Granulocytes % 0.5 % (0-4); Lymphocytes # 1.6 K/mcL (0.6-4.6); Lymphocytes % 24.7 %; Mean Corpuscular HGB Conc 30.5 g/dL (31.6-35.5); Mean Corpuscular Volume 98.4 fL (83.0-100.0); Mean Platelet Volume 11.2 fL (9.4-12.4); Monocytes # 0.4 K/mcL (0.0-1.3); Monocytes % 6.2 %; Neutrophils # 4.3 K/mcL (1.6-8.9); Platelet Count 201 K/mcL (140-400); Red Blood Count 3.83 M/mcL (3.82-4.97); Red Cell Distribution Width 13.2 % (11.5-14.5); Segmented Neutrophils % 66.6 %; White Blood Count 6.5 K/mcL (4.3-11.1)
[2020-11-16 07:41] LABS: Calcium 8.9 mg/dL (8.6-10.3); Potassium 4.4 mEq/L (3.5-5.1)
[2020-11-16] MEDS ORDERED: Ondansetron 4 MG/2 ML VIAL IVP PRN (09:47)
[2020-11-16] MEDS: Sennosides/Docusate Sodium TABLET PO SCH ×2 (10:51→19:48)
[2020-11-16] MEDS: atenoloL 25 MG TABLET PO SCH ×2 (10:52→19:48)
[2020-11-16] MEDS: Bumetanide 1 MG TABLET PO SCH (10:52)
[2020-11-16] MEDS: Isosorbide MONOnitrate (24 HR) 30 MG TAB.ER.24H PO SCH (10:52)
[2020-11-16] MEDS: Apixaban 5 MG TABLET PO SCH ×2 (10:52→19:47)
[2020-11-16] MEDS ORDERED: atenoloL 25 MG TABLET PO SCH (21:00)
[2020-11-17] MEDS: Ondansetron ODT 4 MG TAB.RAPDIS SL PRN ×2 (03:48→19:48)
[2020-11-17] MEDS: Isosorbide MONOnitrate (24 HR) 30 MG TAB.ER.24H PO SCH (10:55)
[2020-11-17] MEDS: Sennosides/Docusate Sodium TABLET PO SCH ×2 (10:55→19:49)
[2020-11-17] MEDS: Bumetanide 1 MG TABLET PO SCH (10:55)
[2020-11-17] MEDS: Apixaban 5 MG TABLET PO SCH ×2 (10:56→19:48)
[2020-11-17] MEDS: atenoloL 25 MG TABLET PO SCH ×2 (10:56→19:47)
[2020-11-18 07:30] LABS: Hematocrit 36.3 % (35.3-44.9); Hemoglobin 11.3 g/dL (11.5-15.4); Mean Corpuscular HGB Conc 31.1 g/dL (31.6-35.5); Mean Corpuscular Hemoglobin 29.6 pg (28.0-33.3); Mean Platelet Volume 10.8 fL (9.4-12.4); Platelet Count 188 K/mcL (140-400); Red Blood Count 3.82 M/mcL (3.82-4.97); Red Cell Distribution Width 12.8 % (11.5-14.5); White Blood Count 6.3 K/mcL (4.3-11.1)
[2020-11-18 07:51] LABS: Calcium 8.9 mg/dL (8.6-10.3); Potassium 3.7 mEq/L (3.5-5.1)
[2020-11-18] MEDS: Sennosides/Docusate Sodium TABLET PO SCH ×2 (09:05→21:51)
[2020-11-18] MEDS: atenoloL 25 MG TABLET PO SCH ×2 (09:05→21:51)
[2020-11-18] MEDS: Isosorbide MONOnitrate (24 HR) 30 MG TAB.ER.24H PO SCH (09:05)
[2020-11-18] MEDS: Bumetanide 1 MG TABLET PO SCH (09:05)
[2020-11-18] MEDS: Ondansetron ODT 4 MG TAB.RAPDIS SL PRN ×2 (09:05→15:56)
[2020-11-18] MEDS: Apixaban 5 MG TABLET PO SCH ×2 (09:06→21:52)
[2020-11-18] MEDS: Loratadine 10 MG TABLET PO PRN (09:09)
[2020-11-18] MEDS: *HR* HYDROcodone/Acet 7.5/325 mg TABLET PO PRN (21:54)
[2020-11-19] MEDS: Isosorbide MONOnitrate (24 HR) 30 MG TAB.ER.24H PO SCH (08:05)
[2020-11-19] MEDS: Ondansetron ODT 4 MG TAB.RAPDIS SL PRN ×2 (08:05→16:59)
[2020-11-19] MEDS: Sennosides/Docusate Sodium TABLET PO SCH ×2 (08:05→19:57)
[2020-11-19] MEDS: atenoloL 25 MG TABLET PO SCH ×2 (08:06→19:58)
[2020-11-19] MEDS: Apixaban 5 MG TABLET PO SCH ×2 (08:06→19:58)
[2020-11-19] MEDS: Bumetanide 1 MG TABLET PO SCH (08:06)
[2020-11-19] MEDS: Loratadine 10 MG TABLET PO PRN (08:13)
[2020-11-19] MEDS: *HR* HYDROcodone/Acet 7.5/325 mg TABLET PO PRN (15:18)
[2020-11-20] MEDS: Bumetanide 1 MG TABLET PO SCH (09:08)
[2020-11-20] MEDS: Sennosides/Docusate Sodium TABLET PO SCH ×2 (09:08→21:39)
[2020-11-20] MEDS: Apixaban 5 MG TABLET PO SCH ×2 (09:08→21:40)
[2020-11-20] MEDS: Isosorbide MONOnitrate (24 HR) 30 MG TAB.ER.24H PO SCH (09:08)
[2020-11-20] MEDS: Loratadine 10 MG TABLET PO SCH (09:08)
[2020-11-20] MEDS: atenoloL 25 MG TABLET PO SCH ×2 (09:08→21:39)
[2020-11-20] MEDS: Neosporin OINT 15 GM TUBE TP SCH (15:00)
[2020-11-20] MEDS: *HR* HYDROcodone/Acet 7.5/325 mg TABLET PO PRN (21:43)
[2020-11-21 04:25] LABS: Basophils # 0.1 K/mcL (0.0-0.2); Basophils % 0.8 %; Eosinophils # 0.1 K/mcL (0.0-0.6); Eosinophils % 2.1 %; Immature Granulocytes % 0.7 % (0-4); Lymphocytes % 31.8 %; Mean Corpuscular HGB Conc 31.4 g/dL (31.6-35.5); Mean Corpuscular Hemoglobin 29.8 pg (28.0-33.3); Mean Corpuscular Volume 94.9 fL (83.0-100.0); Mean Platelet Volume 11.8 fL (9.4-12.4); Monocytes # 0.5 K/mcL (0.0-1.3); Neutrophils # 3.5 K/mcL (1.6-8.9); Platelet Count 178 K/mcL (140-400); Red Blood Count 3.69 M/mcL (3.82-4.97); Red Cell Distribution Width 13.2 % (11.5-14.5); Segmented Neutrophils % 56.6 %; White Blood Count 6.1 K/mcL (4.3-11.1)
[2020-11-21 04:45] LABS: Calcium 9.1 mg/dL (8.6-10.3); Potassium 3.6 mEq/L (3.5-5.1)
[2020-11-21] MEDS: atenoloL 25 MG TABLET PO SCH ×2 (09:43→22:49)
[2020-11-21] MEDS: Loratadine 10 MG TABLET PO SCH (09:43)
[2020-11-21] MEDS: Apixaban 5 MG TABLET PO SCH ×2 (09:43→22:48)
[2020-11-21] MEDS: Sennosides/Docusate Sodium TABLET PO SCH ×2 (09:43→22:49)
[2020-11-21] MEDS: Isosorbide MONOnitrate (24 HR) 30 MG TAB.ER.24H PO SCH (09:43)
[2020-11-21] MEDS: Bumetanide 1 MG TABLET PO SCH (09:43)
[2020-11-21] MEDS: Neosporin OINT 15 GM TUBE TP SCH (11:40)
[2020-11-21] MEDS: *HR* HYDROcodone/Acet 7.5/325 mg TABLET PO PRN (22:49)
[2020-11-22] MEDS: Apixaban 5 MG TABLET PO SCH ×2 (09:34→21:25)
[2020-11-22] MEDS: atenoloL 25 MG TABLET PO SCH ×2 (09:34→21:25)
[2020-11-22] MEDS: Bumetanide 1 MG TABLET PO SCH (09:34)
[2020-11-22] MEDS: Sennosides/Docusate Sodium TABLET PO SCH ×2 (09:34→21:24)
[2020-11-22] MEDS: *HR* HYDROcodone/Acet 7.5/325 mg TABLET PO PRN ×2 (09:34→17:56)
[2020-11-22] MEDS: Isosorbide MONOnitrate (24 HR) 30 MG TAB.ER.24H PO SCH (09:35)
[2020-11-22] MEDS: Loratadine 10 MG TABLET PO SCH (09:35)
[2020-11-22] MEDS: Neosporin OINT 15 GM TUBE TP SCH (09:36)
[2020-11-22] MEDS: Ondansetron ODT 4 MG TAB.RAPDIS SL PRN (09:43)
[2020-11-23] MEDS: Sennosides/Docusate Sodium TABLET PO SCH ×2 (10:21→20:16)
[2020-11-23] MEDS: Bumetanide 1 MG TABLET PO SCH (10:22)
[2020-11-23] MEDS: Apixaban 5 MG TABLET PO SCH ×2 (10:22→20:17)
[2020-11-23] MEDS: Isosorbide MONOnitrate (24 HR) 30 MG TAB.ER.24H PO SCH (10:22)
[2020-11-23] MEDS: atenoloL 25 MG TABLET PO SCH ×2 (10:22→20:17)
[2020-11-23] MEDS: Loratadine 10 MG TABLET PO SCH (10:22)
[2020-11-23] MEDS: Neosporin OINT 15 GM TUBE TP SCH (10:27)
[2020-11-23] MEDS: *HR* HYDROcodone/Acet 7.5/325 mg TABLET PO PRN (17:24)
[2020-11-24] MEDS: Apixaban 5 MG TABLET PO SCH ×2 (10:18→20:56)
[2020-11-24] MEDS: Sennosides/Docusate Sodium TABLET PO SCH ×2 (10:18→20:56)
[2020-11-24] MEDS: Isosorbide MONOnitrate (24 HR) 30 MG TAB.ER.24H PO SCH (10:18)
[2020-11-24] MEDS: Bumetanide 1 MG TABLET PO SCH (10:18)
[2020-11-24] MEDS: Loratadine 10 MG TABLET PO SCH (10:18)
[2020-11-24] MEDS: atenoloL 25 MG TABLET PO SCH ×2 (10:19→20:55)
[2020-11-24] MEDS: Neosporin OINT 15 GM TUBE TP SCH (10:22)
[2020-11-25 09:44] LABS: Basophils % 0.4 %; Eosinophils # 0.1 K/mcL (0.0-0.6); Eosinophils % 1.4 %; Hematocrit 36.2 % (35.3-44.9); Hemoglobin 11.5 g/dL (11.5-15.4); Immature Granulocytes % 0.4 % (0-4); Lymphocytes # 1.5 K/mcL (0.6-4.6); Lymphocytes % 20.6 %; Mean Corpuscular HGB Conc 31.8 g/dL (31.6-35.5); Mean Corpuscular Hemoglobin 30.1 pg (28.0-33.3); Mean Corpuscular Volume 94.8 fL (83.0-100.0); Mean Platelet Volume 11.8 fL (9.4-12.4); Monocytes # 0.4 K/mcL (0.0-1.3); Monocytes % 6.2 %; Neutrophils # 5.1 K/mcL (1.6-8.9); Platelet Count 158 K/mcL (140-400); Red Blood Count 3.82 M/mcL (3.82-4.97); Red Cell Distribution Width 13.5 % (11.5-14.5); White Blood Count 7.1 K/mcL (4.3-11.1)
[2020-11-25] MEDS: Apixaban 5 MG TABLET PO SCH ×2 (09:46→20:45)
[2020-11-25] MEDS: Bumetanide 1 MG TABLET PO SCH (09:46)
[2020-11-25] MEDS: Isosorbide MONOnitrate (24 HR) 30 MG TAB.ER.24H PO SCH (09:47)
[2020-11-25] MEDS: atenoloL 25 MG TABLET PO SCH ×2 (09:47→20:45)
[2020-11-25] MEDS: Sennosides/Docusate Sodium TABLET PO SCH ×2 (09:47→20:45)
[2020-11-25] MEDS: Loratadine 10 MG TABLET PO SCH (09:47)
[2020-11-25] MEDS: Neosporin OINT 15 GM TUBE TP SCH (09:51)
[2020-11-25 09:54] LABS: BUN/Creatinine Ratio 22 (6-26); Blood Urea Nitrogen 23 mg/dL (8-23); Calcium 9.4 mg/dL (8.6-10.3); Carbon Dioxide 26 mEq/L (23-29); Chloride 104 mEq/L (98-107); Glucose 165 mg/dL (70-105); Osmolality,Calculated 297 (280-300); Potassium 3.3 mEq/L (3.5-5.1); Sodium 140 mEq/L (136-145); eGFR For African Americans > 60 (> 60); eGFR For Non-African Americans 51 (> 60)
[2020-11-25] MEDS: *HR* HYDROcodone/Acet 7.5/325 mg TABLET PO PRN (22:24)
[2020-11-26] MEDS: Isosorbide MONOnitrate (24 HR) 30 MG TAB.ER.24H PO SCH (09:57)
[2020-11-26] MEDS: Bumetanide 1 MG TABLET PO SCH (09:57)
[2020-11-26] MEDS: Loratadine 10 MG TABLET PO SCH (09:58)
[2020-11-26] MEDS: atenoloL 25 MG TABLET PO SCH ×2 (09:58→20:54)
[2020-11-26] MEDS: Apixaban 5 MG TABLET PO SCH ×2 (09:58→20:54)
[2020-11-26] MEDS: Sennosides/Docusate Sodium TABLET PO SCH ×2 (09:58→20:52)
[2020-11-26] MEDS: Neosporin OINT 15 GM TUBE TP SCH (10:06)
[2020-11-26 10:20] LABS: Bilirubin,Urine Small (Negative); Blood,Urine Moderate (Negative); Clarity,Urine Turbid (Clear); Color,Urine Yellow (Yellow); Glucose,Urine (UA) Normal (Normal); Ketones,Urine Negative (Negative); Leukocyte Esterase,Urine Small (Negative); Nitrite,Urine Positive (Negative); PH,Urine 5.5 pH Units (5.0-8.0); Protein,Urine >=300 mg/dL (Neg-Trace); Specific Gravity,Urine >= 1.030 (1.010-1.025); Urobilinogen,Urine Normal (Normal)
[2020-11-26 10:23] LABS: Bacteria,Urine Moderate per hpf (None-Few); Mucus,Urine Few per lpf (None-Few); WBC,Urine TNTC per hpf (0-3)
[2020-11-26] MEDS: *HR* HYDROcodone/Acet 7.5/325 mg TABLET PO PRN (20:53)
[2020-11-27] MEDS: atenoloL 25 MG TABLET PO SCH ×2 (09:38→20:41)
[2020-11-27] MEDS: Loratadine 10 MG TABLET PO SCH (09:39)
[2020-11-27] MEDS: Isosorbide MONOnitrate (24 HR) 30 MG TAB.ER.24H PO SCH (09:39)
[2020-11-27] MEDS: Bumetanide 1 MG TABLET PO SCH (09:39)
[2020-11-27] MEDS: Apixaban 5 MG TABLET PO SCH ×2 (09:39→20:41)
[2020-11-27] MEDS: Sennosides/Docusate Sodium TABLET PO SCH ×2 (09:39→20:40)
[2020-11-27] MEDS: *HR* HYDROcodone/Acet 7.5/325 mg TABLET PO PRN ×2 (09:42→20:41)
[2020-11-27] MEDS: Neosporin OINT 15 GM TUBE TP SCH (09:42)
[2020-11-28 06:48] VITALS: BP 138/78
[2020-11-28] MEDS: atenoloL 25 MG TABLET PO SCH (09:25)
[2020-11-28] MEDS: Sennosides/Docusate Sodium TABLET PO SCH (09:39)
[2020-11-28] MEDS: Bumetanide 1 MG TABLET PO SCH (09:39)
[2020-11-28] MEDS: Isosorbide MONOnitrate (24 HR) 30 MG TAB.ER.24H PO SCH (09:39)
[2020-11-28] MEDS: Loratadine 10 MG TABLET PO SCH (09:40)
[2020-11-28] MEDS: Neosporin OINT 15 GM TUBE TP SCH (09:40)
[2020-11-28] MEDS: Apixaban 5 MG TABLET PO SCH (09:40)
== END 2020-11-28 10:10 | disposition home health service (06) | DRG 945 ==
LOC: INPPIK 16:32
PROVIDERS: ADMIT Family Medicine; ATTEND Family Medicine

== ENCOUNTER 2022-05-13 08:52 | Inpatient (IN) ==
[2022-05-13 09:26] LABS: Basophils % 0.2 %; Eosinophils % 0.1 %; Hematocrit 41.1 % (35.3-44.9); Hemoglobin 12.9 g/dL (11.5-15.4); Immature Granulocytes % 0.4 % (0-4); Lymphocytes # 0.6 K/mcL (0.6-4.6); Lymphocytes % 4.7 %; Mean Corpuscular HGB Conc 31.4 g/dL (31.6-35.5); Mean Corpuscular Hemoglobin 29.9 pg (28.0-33.3); Mean Corpuscular Volume 95.1 fL (83.0-100.0); Mean Platelet Volume 10.8 fL (9.4-12.4); Monocytes # 0.3 K/mcL (0.0-1.3); Monocytes % 2.5 %; Neutrophils # 12.3 K/mcL (1.6-8.9); Platelet Count 162 K/mcL (140-400); Red Blood Count 4.32 M/mcL (3.82-4.97); Red Cell Distribution Width 12.8 % (11.5-14.5); Segmented Neutrophils % 92.1 %; White Blood Count 13.3 K/mcL (4.3-11.1)
[2022-05-13 09:44] LABS: Calcium 9.5 mg/dL (8.6-10.3); Potassium 4.1 mEq/L (3.5-5.1)
[2022-05-13 10:22] LABS: Bilirubin,Urine Small (Negative); Blood,Urine Trace-lysed (Negative); Clarity,Urine Slightly Cloudy (Clear); Color,Urine Yellow (Yellow); Glucose,Urine (UA) Normal (Normal); Ketones,Urine Trace mg/dL (Negative); Leukocyte Esterase,Urine Negative (Negative); Nitrite,Urine Negative (Negative); Protein,Urine 30 mg/dL (Neg-Trace); Urobilinogen,Urine Normal (Normal)
[2022-05-13 10:32] LABS: Mucus,Urine Few per lpf (None-Few); RBC,Urine 0-3 per hpf (0-3); Squamous Epithelial Cell,Urine Few per hpf (None-Few); Transitional Epi Cells,Urine Few per hpf (None-Few); WBC,Urine 0-3 per hpf (0-3)
[2022-05-13] MEDS ORDERED: ceFAZolin 1,000 MG in 0.9 % Sodium Chloride 10 ML IVP ONE (11:45)
[2022-05-13] MEDS ORDERED: *HR* HYDROcodone/Acet 7.5/325 mg TABLET PO ONE (13:56)
[2022-05-13] MEDS ORDERED: Naloxone 0.4 MG/ML INJ IVP PRN (15:32)
[2022-05-13] MEDS ORDERED: Ondansetron 4 MG/2 ML VIAL IVP PRN (15:32)
[2022-05-13] MEDS ORDERED: Loratadine 10 MG TABLET PO PRN (15:33)
[2022-05-13] MEDS: Doxycycline 100 MG in 0.9 % Sodium Chloride Mini Bag 100 ML IVPB SCH (18:06)
[2022-05-13] MEDS: Acetaminophen 325 MG TABLET PO PRN (18:07)
[2022-05-13] MEDS: *HR* HYDROcodone/Acet 7.5/325 mg TABLET PO PRN (21:00)
[2022-05-13] MEDS: Apixaban 5 MG TABLET PO SCH (21:00)
[2022-05-13] MEDS: Melatonin 3 MG TABLET PO PRN (21:01)
[2022-05-13] MEDS: atenoloL 25 MG TABLET PO SCH (21:02)
[2022-05-14] MEDS: Doxycycline 100 MG in 0.9 % Sodium Chloride Mini Bag 100 ML IVPB SCH ×2 (05:27→18:57)
[2022-05-14] MEDS: *HR* HYDROcodone/Acet 7.5/325 mg TABLET PO PRN ×3 (05:28→21:55)
[2022-05-14 07:58] LABS: Basophils % 0.2 %; Eosinophils % 0.3 %; Hemoglobin 11.7 g/dL (11.5-15.4); Immature Granulocytes % 0.3 % (0-4); Lymphocytes # 0.8 K/mcL (0.6-4.6); Lymphocytes % 8.3 %; Mean Corpuscular HGB Conc 31.6 g/dL (31.6-35.5); Mean Corpuscular Hemoglobin 29.8 pg (28.0-33.3); Mean Corpuscular Volume 94.1 fL (83.0-100.0); Mean Platelet Volume 11.3 fL (9.4-12.4); Monocytes # 0.4 K/mcL (0.0-1.3); Monocytes % 3.9 %; Neutrophils # 8.1 K/mcL (1.6-8.9); Platelet Count 129 K/mcL (140-400); Red Blood Count 3.93 M/mcL (3.82-4.97); Red Cell Distribution Width 12.7 % (11.5-14.5); White Blood Count 9.3 K/mcL (4.3-11.1)
[2022-05-14 08:15] LABS: Calcium 8.9 mg/dL (8.6-10.3); Potassium 3.9 mEq/L (3.5-5.1)
[2022-05-14] MEDS: Apixaban 5 MG TABLET PO SCH ×2 (11:31→21:57)
[2022-05-14] MEDS: Fluticasone Propionate Nasal 50 MCG/SPRAY BOTTLE NS SCH (11:33)
[2022-05-14] MEDS: Bumetanide 1 MG TABLET PO SCH (11:33)
[2022-05-14] MEDS: atenoloL 25 MG TABLET PO SCH ×2 (11:33→21:55)
[2022-05-14] MEDS: Potassium Chloride Elixir 20 MEQ/15 ML UDC PO SCH (11:33)
[2022-05-14] MEDS: Isosorbide MONOnitrate (24 HR) 30 MG TAB.ER.24H PO SCH (11:37)
[2022-05-14] MEDS ORDERED: Bumetanide 1 MG/4 ML VIAL IVP ONE (11:37)
[2022-05-14] MEDS: Lactobacillus 1 EACH CAP.SPRINK PO SCH (11:53)
[2022-05-14 14:12] LABS: Adenovirus Not Detected (Not Detect); Bordetella Pertussis Not Detected (Not Detect); Chlamydophila pneumoniae Not Detected (Not Detect); Coronavirus 229E Not Detected (Not Detect); Coronavirus HKU1 Not Detected (Not Detect); Coronavirus NL63 Not Detected (Not Detect); Coronavirus OC43 Not Detected (Not Detect); Human Metapneumovirus Not Detected (Not Detect); Human Rhinovirus/Enterovirus Not Detected (Not Detect); Influenza A Subtype 2009 H1 Not Detected (Not Detect); Influenza B Not Detected (Not Detect); Mycoplasma pneumoniae Not Detected (Not Detect); Parainfluenza Virus 1 Not Detected (Not Detect); Parainfluenza Virus 2 Not Detected (Not Detect); Parainfluenza Virus 3 Not Detected (Not Detect); Parainfluenza Virus 4 Not Detected (Not Detect); Respiratory Syncytial Virus Not Detected (Not Detect); SARS-CoV-2 Not Detected (Not Detect)
[2022-05-14] MEDS ORDERED: *HR* HYDROcodone/Acet 10/325 mg TABLET PO ONE (15:00)
[2022-05-14] MEDS: Melatonin 3 MG TABLET PO PRN (21:56)
[2022-05-15] MEDS: *HR* HYDROcodone/Acet 7.5/325 mg TABLET PO PRN ×3 (04:45→18:39)
[2022-05-15] MEDS: Doxycycline 100 MG in 0.9 % Sodium Chloride Mini Bag 100 ML IVPB SCH ×2 (04:45→18:38)
[2022-05-15 08:20] LABS: Basophils % 0.1 %; Eosinophils # 0.1 K/mcL (0.0-0.6); Eosinophils % 1.6 %; Immature Granulocytes % 0.6 % (0-4); Lymphocytes # 0.8 K/mcL (0.6-4.6); Lymphocytes % 9.7 %; Mean Corpuscular HGB Conc 32.4 g/dL (31.6-35.5); Mean Corpuscular Hemoglobin 30.1 pg (28.0-33.3); Mean Corpuscular Volume 92.7 fL (83.0-100.0); Mean Platelet Volume 10.6 fL (9.4-12.4); Monocytes # 0.5 K/mcL (0.0-1.3); Monocytes % 5.5 %; Neutrophils # 6.9 K/mcL (1.6-8.9); Platelet Count 118 K/mcL (140-400); Red Blood Count 3.99 M/mcL (3.82-4.97); Red Cell Distribution Width 12.4 % (11.5-14.5); Segmented Neutrophils % 82.5 %; White Blood Count 8.4 K/mcL (4.3-11.1)
[2022-05-15] MEDS: Bumetanide 1 MG TABLET PO SCH (08:29)
[2022-05-15] MEDS: atenoloL 25 MG TABLET PO SCH ×2 (08:29→21:03)
[2022-05-15] MEDS: Potassium Chloride Elixir 20 MEQ/15 ML UDC PO SCH (08:29)
[2022-05-15] MEDS: Apixaban 5 MG TABLET PO SCH ×2 (08:29→21:04)
[2022-05-15] MEDS: Isosorbide MONOnitrate (24 HR) 30 MG TAB.ER.24H PO SCH (08:29)
[2022-05-15] MEDS: Lactobacillus 1 EACH CAP.SPRINK PO SCH (08:29)
[2022-05-15] MEDS: Fluticasone Propionate Nasal 50 MCG/SPRAY BOTTLE NS SCH (08:30)
[2022-05-15 08:38] LABS: Calcium 8.8 mg/dL (8.6-10.3)
[2022-05-15] MEDS: Bumetanide 1 MG/4 ML VIAL IVP SCH ×2 (12:08→18:39)
[2022-05-15] MEDS: Piperacillin/Tazobactam 3.375 GM in 0.9 % Sodium Chloride Mini Bag 100 ML IVPB SCH (16:11)
[2022-05-15] MEDS: Melatonin 3 MG TABLET PO PRN (21:04)
[2022-05-16] MEDS: *HR* HYDROcodone/Acet 7.5/325 mg TABLET PO PRN ×3 (00:48→20:24)
[2022-05-16] MEDS: Piperacillin/Tazobactam 3.375 GM in 0.9 % Sodium Chloride Mini Bag 100 ML IVPB SCH ×3 (00:49→17:57)
[2022-05-16] MEDS: Doxycycline 100 MG in 0.9 % Sodium Chloride Mini Bag 100 ML IVPB SCH ×3 (06:19→20:25)
[2022-05-16 07:44] LABS: Hematocrit 38.2 % (35.3-44.9); Hemoglobin 12.4 g/dL (11.5-15.4); Mean Corpuscular HGB Conc 32.5 g/dL (31.6-35.5); Mean Corpuscular Hemoglobin 29.7 pg (28.0-33.3); Mean Corpuscular Volume 91.6 fL (83.0-100.0); Platelet Count 133 K/mcL (140-400); Red Blood Count 4.17 M/mcL (3.82-4.97); Red Cell Distribution Width 12.3 % (11.5-14.5); White Blood Count 8.5 K/mcL (4.3-11.1)
[2022-05-16 08:03] LABS: Calcium 8.9 mg/dL (8.6-10.3); Magnesium 1.5 mg/dL (1.6-2.6); Potassium 3.5 mEq/L (3.5-5.1)
[2022-05-16] MEDS: Bumetanide 1 MG/4 ML VIAL IVP SCH ×2 (11:29→17:56)
[2022-05-16] MEDS: Potassium Chloride Elixir 20 MEQ/15 ML UDC PO SCH (11:29)
[2022-05-16] MEDS: Lactobacillus 1 EACH CAP.SPRINK PO SCH (11:30)
[2022-05-16] MEDS: Fluticasone Propionate Nasal 50 MCG/SPRAY BOTTLE NS SCH (11:30)
[2022-05-16] MEDS: Isosorbide MONOnitrate (24 HR) 30 MG TAB.ER.24H PO SCH (11:30)
[2022-05-16] MEDS: Apixaban 5 MG TABLET PO SCH ×2 (11:30→20:24)
[2022-05-16] MEDS: atenoloL 25 MG TABLET PO SCH ×2 (11:30→20:24)
[2022-05-16] MEDS ORDERED: Piperacillin/Tazobactam 3.375 GM VIAL ONE (16:25)
[2022-05-16] MEDS: Melatonin 3 MG TABLET PO PRN (20:24)
[2022-05-17] MEDS: Piperacillin/Tazobactam 3.375 GM in 0.9 % Sodium Chloride Mini Bag 100 ML IVPB SCH ×3 (03:03→18:48)
[2022-05-17 07:37] LABS: Basophils % 0.5 %; Eosinophils # 0.2 K/mcL (0.0-0.6); Eosinophils % 2.6 %; Hematocrit 37.8 % (35.3-44.9); Hemoglobin 12.3 g/dL (11.5-15.4); Immature Granulocytes % 0.6 % (0-4); Lymphocytes # 1.3 K/mcL (0.6-4.6); Lymphocytes % 16.4 %; Mean Corpuscular HGB Conc 32.5 g/dL (31.6-35.5); Mean Corpuscular Hemoglobin 29.9 pg (28.0-33.3); Mean Platelet Volume 11.3 fL (9.4-12.4); Monocytes # 0.5 K/mcL (0.0-1.3); Monocytes % 6.7 %; Neutrophils # 5.9 K/mcL (1.6-8.9); Platelet Count 145 K/mcL (140-400); Red Blood Count 4.11 M/mcL (3.82-4.97); Segmented Neutrophils % 73.2 %; White Blood Count 8.1 K/mcL (4.3-11.1)
[2022-05-17 07:56] LABS: Calcium 8.8 mg/dL (8.6-10.3); Magnesium 1.6 mg/dL (1.6-2.6); Potassium 3.5 mEq/L (3.5-5.1)
[2022-05-17] MEDS: Doxycycline 100 MG in 0.9 % Sodium Chloride Mini Bag 100 ML IVPB SCH ×2 (09:31→21:20)
[2022-05-17] MEDS: Bumetanide 1 MG/4 ML VIAL IVP SCH ×2 (10:25→18:47)
[2022-05-17] MEDS: Fluticasone Propionate Nasal 50 MCG/SPRAY BOTTLE NS SCH (10:26)
[2022-05-17] MEDS: atenoloL 25 MG TABLET PO SCH ×2 (10:26→21:20)
[2022-05-17] MEDS: *HR* HYDROcodone/Acet 7.5/325 mg TABLET PO PRN ×2 (10:26→16:34)
[2022-05-17] MEDS: Lactobacillus 1 EACH CAP.SPRINK PO SCH (10:26)
[2022-05-17] MEDS: Apixaban 5 MG TABLET PO SCH ×2 (10:26→21:20)
[2022-05-17] MEDS: Isosorbide MONOnitrate (24 HR) 30 MG TAB.ER.24H PO SCH (10:26)
[2022-05-18] MEDS: Piperacillin/Tazobactam 3.375 GM in 0.9 % Sodium Chloride Mini Bag 100 ML IVPB SCH ×3 (02:00→16:55)
[2022-05-18] MEDS: Apixaban 5 MG TABLET PO SCH ×2 (08:17→21:11)
[2022-05-18] MEDS: atenoloL 25 MG TABLET PO SCH ×2 (08:17→21:09)
[2022-05-18] MEDS: Bumetanide 1 MG/4 ML VIAL IVP SCH (08:18)
[2022-05-18] MEDS: Isosorbide MONOnitrate (24 HR) 30 MG TAB.ER.24H PO SCH (08:18)
[2022-05-18] MEDS: Fluticasone Propionate Nasal 50 MCG/SPRAY BOTTLE NS SCH (08:18)
[2022-05-18] MEDS: Lactobacillus 1 EACH CAP.SPRINK PO SCH (08:18)
[2022-05-18] MEDS: Doxycycline 100 MG in 0.9 % Sodium Chloride Mini Bag 100 ML IVPB SCH ×2 (08:19→21:04)
[2022-05-18 09:01] LABS: Basophils % 0.5 %; Eosinophils # 0.2 K/mcL (0.0-0.6); Eosinophils % 2.8 %; Hematocrit 38.5 % (35.3-44.9); Hemoglobin 12.5 g/dL (11.5-15.4); Immature Granulocytes % 0.5 % (0-4); Lymphocytes # 1.3 K/mcL (0.6-4.6); Lymphocytes % 17.8 %; Mean Corpuscular HGB Conc 32.5 g/dL (31.6-35.5); Mean Corpuscular Hemoglobin 29.8 pg (28.0-33.3); Mean Corpuscular Volume 91.7 fL (83.0-100.0); Mean Platelet Volume 11.2 fL (9.4-12.4); Monocytes # 0.5 K/mcL (0.0-1.3); Monocytes % 6.2 %; Neutrophils # 5.4 K/mcL (1.6-8.9); Platelet Count 167 K/mcL (140-400); Red Cell Distribution Width 12.1 % (11.5-14.5); Segmented Neutrophils % 72.2 %; White Blood Count 7.5 K/mcL (4.3-11.1)
[2022-05-18 09:19] LABS: Magnesium 1.5 mg/dL (1.6-2.6); Potassium 3.5 mEq/L (3.5-5.1)
[2022-05-18] MEDS: *HR* HYDROcodone/Acet 7.5/325 mg TABLET PO PRN ×3 (10:55→23:15)
[2022-05-18] MEDS: Acetaminophen 325 MG TABLET PO PRN (14:32)
[2022-05-18] MEDS: Bumetanide 1 MG TABLET PO SCH (16:55)
[2022-05-18] MEDS: Melatonin 3 MG TABLET PO PRN (21:11)
[2022-05-19] MEDS: Piperacillin/Tazobactam 3.375 GM in 0.9 % Sodium Chloride Mini Bag 100 ML IVPB SCH ×3 (01:58→16:20)
[2022-05-19] MEDS: Apixaban 5 MG TABLET PO SCH (07:33)
[2022-05-19] MEDS: Isosorbide MONOnitrate (24 HR) 30 MG TAB.ER.24H PO SCH (07:33)
[2022-05-19] MEDS: Bumetanide 1 MG TABLET PO SCH ×2 (07:33→16:20)
[2022-05-19] MEDS: atenoloL 25 MG TABLET PO SCH (07:34)
[2022-05-19] MEDS: Lactobacillus 1 EACH CAP.SPRINK PO SCH (07:34)
[2022-05-19] MEDS: Doxycycline 100 MG in 0.9 % Sodium Chloride Mini Bag 100 ML IVPB SCH (07:34)
[2022-05-19 08:05] LABS: Basophils % 0.6 %; Eosinophils # 0.2 K/mcL (0.0-0.6); Hematocrit 39.2 % (35.3-44.9); Hemoglobin 12.6 g/dL (11.5-15.4); Immature Granulocytes % 0.6 % (0-4); Lymphocytes # 1.4 K/mcL (0.6-4.6); Lymphocytes % 20.2 %; Mean Corpuscular HGB Conc 32.1 g/dL (31.6-35.5); Mean Corpuscular Hemoglobin 29.6 pg (28.0-33.3); Mean Platelet Volume 11.1 fL (9.4-12.4); Monocytes # 0.4 K/mcL (0.0-1.3); Monocytes % 6.1 %; Neutrophils # 4.7 K/mcL (1.6-8.9); Platelet Count 167 K/mcL (140-400); Red Blood Count 4.26 M/mcL (3.82-4.97); Segmented Neutrophils % 69.5 %; White Blood Count 6.7 K/mcL (4.3-11.1)
[2022-05-19 08:22] LABS: Calcium 9.1 mg/dL (8.6-10.3); Magnesium 1.7 mg/dL (1.6-2.6); Potassium 3.6 mEq/L (3.5-5.1)
[2022-05-19] MEDS: Fluticasone Propionate Nasal 50 MCG/SPRAY BOTTLE NS SCH (08:40)
[2022-05-19] MEDS ORDERED: Magnesium Oxide 400 MG TABLET PO SCH (09:00)
[2022-05-19] MEDS ORDERED: Metoclopramide 10 MG/10 ML UD.LIQ PO PRN (12:34)
[2022-05-19] MEDS: *HR* HYDROcodone/Acet 7.5/325 mg TABLET PO PRN (12:48)
[2022-05-19 14:52] VITALS: BP 120/66; PULSE 73; RESP 16; TEMP 98.2; O2SAT 95
== END 2022-05-19 18:04 | disposition still patient (30) | DRG 871 ==
LOC: EMEROOPIK 08:52 → INPPIK 08:52
PROVIDERS: ADMIT Registered Nurse Emergency; ATTEND Registered Nurse Emergency

== ENCOUNTER 2022-05-19 16:11 | Inpatient (IN) ==
[2022-05-19] MEDS ORDERED: Piperacillin/Tazobactam 3.375 GM VIAL IVPB SCH (18:00)
[2022-05-19] MEDS: Doxycycline 100 MG in 0.9 % Sodium Chloride Mini Bag 100 ML IVPB SCH (19:54)
[2022-05-19] MEDS ORDERED: Doxycycline 100 MG VIAL IVPB SCH (21:00)
[2022-05-19] MEDS: Apixaban 5 MG TABLET PO SCH (21:48)
[2022-05-19] MEDS: atenoloL 50 MG TABLET PO SCH (21:48)
[2022-05-19] MEDS: *HR* HYDROcodone/Acet 7.5/325 mg TABLET PO PRN (21:54)
[2022-05-20] MEDS: Piperacillin/Tazobactam 3.375 GM in 0.9 % Sodium Chloride Mini Bag 100 ML IVPB SCH ×4 (03:00→23:47)
[2022-05-20] MEDS: *HR* HYDROcodone/Acet 7.5/325 mg TABLET PO PRN ×2 (05:56→16:46)
[2022-05-20] MEDS: Doxycycline 100 MG in 0.9 % Sodium Chloride Mini Bag 100 ML IVPB SCH ×2 (07:56→21:06)
[2022-05-20] MEDS: Bumetanide 1 MG TABLET PO SCH ×2 (07:56→16:46)
[2022-05-20] MEDS: atenoloL 50 MG TABLET PO SCH ×2 (07:56→21:06)
[2022-05-20] MEDS: Apixaban 5 MG TABLET PO SCH ×2 (07:56→21:07)
[2022-05-20 08:24] LABS: Basophils % 0.4 %; Eosinophils # 0.2 K/mcL (0.0-0.6); Eosinophils % 3.2 %; Hematocrit 37.6 % (35.3-44.9); Hemoglobin 12.1 g/dL (11.5-15.4); Immature Granulocytes % 0.7 % (0-4); Lymphocytes # 1.5 K/mcL (0.6-4.6); Mean Corpuscular HGB Conc 32.2 g/dL (31.6-35.5); Mean Corpuscular Hemoglobin 29.5 pg (28.0-33.3); Mean Corpuscular Volume 91.7 fL (83.0-100.0); Mean Platelet Volume 10.8 fL (9.4-12.4); Monocytes # 0.4 K/mcL (0.0-1.3); Monocytes % 5.9 %; Neutrophils # 4.9 K/mcL (1.6-8.9); Platelet Count 188 K/mcL (140-400); Segmented Neutrophils % 68.8 %; White Blood Count 7.1 K/mcL (4.3-11.1)
[2022-05-20 08:40] LABS: Potassium 3.5 mEq/L (3.5-5.1)
[2022-05-20] MEDS ORDERED: Magnesium Oxide 400 MG TABLET PO SCH (09:00)
[2022-05-20] MEDS: Isosorbide MONOnitrate (24 HR) 30 MG TAB.ER.24H PO SCH (09:14)
[2022-05-20] MEDS: Fluticasone Propionate Nasal 50 MCG/SPRAY BOTTLE NS SCH (09:14)
[2022-05-20] MEDS: Lactobacillus 1 EACH CAP.SPRINK PO SCH (09:14)
[2022-05-20] MEDS: Melatonin 3 MG TABLET PO PRN (21:06)
[2022-05-20] MEDS: Magnesium Oxide 400 MG TABLET PO SCH (21:07)
[2022-05-21 05:45] LABS: Basophils % 0.5 %; Eosinophils # 0.2 K/mcL (0.0-0.6); Hematocrit 38.9 % (35.3-44.9); Hemoglobin 12.4 g/dL (11.5-15.4); Immature Granulocytes % 0.9 % (0-4); Lymphocytes # 1.5 K/mcL (0.6-4.6); Lymphocytes % 21.8 %; Mean Corpuscular HGB Conc 31.9 g/dL (31.6-35.5); Mean Corpuscular Hemoglobin 29.6 pg (28.0-33.3); Mean Corpuscular Volume 92.8 fL (83.0-100.0); Mean Platelet Volume 10.9 fL (9.4-12.4); Monocytes # 0.3 K/mcL (0.0-1.3); Monocytes % 5.1 %; Neutrophils # 4.6 K/mcL (1.6-8.9); Platelet Count 203 K/mcL (140-400); Red Blood Count 4.19 M/mcL (3.82-4.97); Red Cell Distribution Width 12.2 % (11.5-14.5); Segmented Neutrophils % 68.7 %; White Blood Count 6.6 K/mcL (4.3-11.1)
[2022-05-21 06:05] LABS: Calcium 9.1 mg/dL (8.6-10.3); Magnesium 1.6 mg/dL (1.6-2.6); Potassium 3.7 mEq/L (3.5-5.1)
[2022-05-21] MEDS: Doxycycline 100 MG in 0.9 % Sodium Chloride Mini Bag 100 ML IVPB SCH ×2 (06:13→19:38)
[2022-05-21] MEDS: Bumetanide 1 MG TABLET PO SCH ×2 (09:21→15:39)
[2022-05-21] MEDS: Lactobacillus 1 EACH CAP.SPRINK PO SCH (09:21)
[2022-05-21] MEDS: Apixaban 5 MG TABLET PO SCH ×2 (09:21→19:52)
[2022-05-21] MEDS: Isosorbide MONOnitrate (24 HR) 30 MG TAB.ER.24H PO SCH (09:21)
[2022-05-21] MEDS: Magnesium Oxide 400 MG TABLET PO SCH ×2 (09:21→19:52)
[2022-05-21] MEDS: Fluticasone Propionate Nasal 50 MCG/SPRAY BOTTLE NS SCH (09:22)
[2022-05-21] MEDS: atenoloL 50 MG TABLET PO SCH (09:22)
[2022-05-21] MEDS: Piperacillin/Tazobactam 3.375 GM in 0.9 % Sodium Chloride Mini Bag 100 ML IVPB SCH ×3 (09:40→23:56)
[2022-05-21] MEDS: *HR* HYDROcodone/Acet 7.5/325 mg TABLET PO PRN ×3 (09:41→21:43)
[2022-05-21] MEDS: Ondansetron 4 MG/2 ML VIAL IVP PRN (19:46)
[2022-05-21] MEDS: Melatonin 3 MG TABLET PO PRN (19:52)
[2022-05-21] MEDS: Nystatin POWDER 30 GM BOTTLE TP SCH (21:44)
[2022-05-21] MEDS: atenoloL 25 MG TABLET PO SCH (21:44)
[2022-05-22] MEDS: Ondansetron 4 MG/2 ML VIAL IVP PRN (03:37)
[2022-05-22] MEDS: *HR* HYDROcodone/Acet 7.5/325 mg TABLET PO PRN ×3 (03:39→20:01)
[2022-05-22] MEDS: Doxycycline 100 MG in 0.9 % Sodium Chloride Mini Bag 100 ML IVPB SCH (06:39)
[2022-05-22] MEDS: Apixaban 5 MG TABLET PO SCH ×2 (09:39→20:01)
[2022-05-22] MEDS: Lactobacillus 1 EACH CAP.SPRINK PO SCH (09:39)
[2022-05-22] MEDS: Bumetanide 1 MG TABLET PO SCH ×2 (09:39→17:12)
[2022-05-22] MEDS: Fluticasone Propionate Nasal 50 MCG/SPRAY BOTTLE NS SCH (09:40)
[2022-05-22] MEDS: atenoloL 25 MG TABLET PO SCH ×2 (09:40→20:01)
[2022-05-22] MEDS: Isosorbide MONOnitrate (24 HR) 30 MG TAB.ER.24H PO SCH (09:40)
[2022-05-22] MEDS: Magnesium Oxide 400 MG TABLET PO SCH ×2 (09:40→20:01)
[2022-05-22] MEDS: Nystatin POWDER 30 GM BOTTLE TP SCH ×2 (09:41→20:02)
[2022-05-22] MEDS: Piperacillin/Tazobactam 3.375 GM in 0.9 % Sodium Chloride Mini Bag 100 ML IVPB SCH (13:41)
[2022-05-22] MEDS: Acetaminophen 325 MG TABLET PO PRN (17:12)
[2022-05-22] MEDS: Melatonin 3 MG TABLET PO PRN (20:01)
[2022-05-22] MEDS: Ondansetron ODT 4 MG TAB.RAPDIS SL PRN (20:02)
[2022-05-22] MEDS: Doxycycline 100 MG CAPSULE PO SCH (20:02)
[2022-05-23] MEDS: atenoloL 25 MG TABLET PO SCH ×2 (07:52→20:03)
[2022-05-23] MEDS: Doxycycline 100 MG CAPSULE PO SCH ×2 (07:53→20:02)
[2022-05-23] MEDS: Lactobacillus 1 EACH CAP.SPRINK PO SCH (07:53)
[2022-05-23] MEDS: Magnesium Oxide 400 MG TABLET PO SCH ×2 (07:53→20:02)
[2022-05-23] MEDS: Fluticasone Propionate Nasal 50 MCG/SPRAY BOTTLE NS SCH (07:53)
[2022-05-23] MEDS: Nystatin POWDER 30 GM BOTTLE TP SCH ×2 (07:53→20:03)
[2022-05-23] MEDS: Isosorbide MONOnitrate (24 HR) 30 MG TAB.ER.24H PO SCH (07:53)
[2022-05-23] MEDS: Apixaban 5 MG TABLET PO SCH ×2 (07:53→20:02)
[2022-05-23] MEDS: Bumetanide 1 MG TABLET PO SCH ×2 (07:53→16:29)
[2022-05-23] MEDS: *HR* HYDROcodone/Acet 7.5/325 mg TABLET PO PRN ×3 (07:58→22:41)
[2022-05-23] MEDS: Acetaminophen 325 MG TABLET PO PRN (20:16)
[2022-05-23] MEDS: Melatonin 3 MG TABLET PO PRN (20:17)
[2022-05-24] MEDS: Magnesium Oxide 400 MG TABLET PO SCH ×2 (07:19→20:20)
[2022-05-24] MEDS: Lactobacillus 1 EACH CAP.SPRINK PO SCH (07:19)
[2022-05-24] MEDS: Bumetanide 1 MG TABLET PO SCH ×2 (07:19→16:41)
[2022-05-24] MEDS: Nystatin POWDER 30 GM BOTTLE TP SCH ×2 (07:20→20:22)
[2022-05-24] MEDS: Fluticasone Propionate Nasal 50 MCG/SPRAY BOTTLE NS SCH (07:20)
[2022-05-24] MEDS: Doxycycline 100 MG CAPSULE PO SCH ×2 (07:20→20:21)
[2022-05-24] MEDS: atenoloL 25 MG TABLET PO SCH ×2 (07:20→20:20)
[2022-05-24] MEDS: Isosorbide MONOnitrate (24 HR) 30 MG TAB.ER.24H PO SCH (07:20)
[2022-05-24] MEDS: Apixaban 5 MG TABLET PO SCH ×2 (07:20→20:20)
[2022-05-24] MEDS: *HR* HYDROcodone/Acet 7.5/325 mg TABLET PO PRN ×2 (11:41→20:21)
[2022-05-24] MEDS: Acetaminophen 325 MG TABLET PO PRN (15:12)
[2022-05-24] MEDS ORDERED: polyethylene glycoL 3350 17 GM POWD.PACK PO ONE (18:58)
[2022-05-24] MEDS: Melatonin 3 MG TABLET PO PRN (20:21)
[2022-05-25] MEDS ORDERED: Milk and Molasses Enema 200 ML RC ONE (03:41)
[2022-05-25] MEDS: atenoloL 25 MG TABLET PO SCH ×2 (09:26→22:01)
[2022-05-25] MEDS: Fluticasone Propionate Nasal 50 MCG/SPRAY BOTTLE NS SCH (09:26)
[2022-05-25] MEDS: Lactobacillus 1 EACH CAP.SPRINK PO SCH (09:26)
[2022-05-25] MEDS: Apixaban 5 MG TABLET PO SCH ×2 (09:27→22:02)
[2022-05-25] MEDS: Isosorbide MONOnitrate (24 HR) 30 MG TAB.ER.24H PO SCH (09:28)
[2022-05-25] MEDS: *HR* HYDROcodone/Acet 7.5/325 mg TABLET PO PRN ×3 (09:28→22:01)
[2022-05-25] MEDS: Bumetanide 1 MG TABLET PO SCH ×2 (09:28→15:18)
[2022-05-25] MEDS: Magnesium Oxide 400 MG TABLET PO SCH ×2 (09:28→22:02)
[2022-05-25] MEDS: Nystatin POWDER 30 GM BOTTLE TP SCH ×2 (09:29→22:05)
[2022-05-25] MEDS: Doxycycline 100 MG CAPSULE PO SCH (09:29)
[2022-05-25] MEDS: Ondansetron ODT 4 MG TAB.RAPDIS SL PRN (11:20)
[2022-05-25 17:17] LABS: Bilirubin,Urine Negative (Negative); Blood,Urine Trace-lysed (Negative); Clarity,Urine Clear (Clear); Color,Urine Yellow (Yellow); Glucose,Urine (UA) Normal (Normal); Ketones,Urine Negative (Negative); Leukocyte Esterase,Urine Trace (Negative); Nitrite,Urine Negative (Negative); Protein,Urine Negative (Neg-Trace); Specific Gravity,Urine 1.015 (1.010-1.025); Urobilinogen,Urine Normal (Normal)
[2022-05-25 17:28] LABS: RBC,Urine 0-3 per hpf (0-3); WBC,Urine 0-3 per hpf (0-3)
[2022-05-25 17:29] LABS: Bacteria,Urine Few per hpf (None-Few); Budding Yeast,Urine Few per hpf (None Seen); Squamous Epithelial Cell,Urine Few per hpf (None-Few)
[2022-05-25] MEDS: Melatonin 3 MG TABLET PO PRN (22:03)
[2022-05-26] MEDS: atenoloL 25 MG TABLET PO SCH ×2 (08:53→20:57)
[2022-05-26] MEDS: Apixaban 5 MG TABLET PO SCH ×2 (08:54→20:56)
[2022-05-26] MEDS: Lactobacillus 1 EACH CAP.SPRINK PO SCH (08:54)
[2022-05-26] MEDS: Isosorbide MONOnitrate (24 HR) 30 MG TAB.ER.24H PO SCH (08:54)
[2022-05-26] MEDS: Magnesium Oxide 400 MG TABLET PO SCH ×2 (08:54→20:57)
[2022-05-26] MEDS: Bumetanide 1 MG TABLET PO SCH ×2 (08:54→16:41)
[2022-05-26] MEDS: Fluticasone Propionate Nasal 50 MCG/SPRAY BOTTLE NS SCH (08:56)
[2022-05-26] MEDS: Nystatin POWDER 30 GM BOTTLE TP SCH ×2 (08:56→20:58)
[2022-05-26] MEDS: *HR* HYDROcodone/Acet 7.5/325 mg TABLET PO PRN ×2 (11:57→20:56)
[2022-05-27] MEDS: Apixaban 5 MG TABLET PO SCH ×2 (08:03→19:53)
[2022-05-27] MEDS: Lactobacillus 1 EACH CAP.SPRINK PO SCH (08:03)
[2022-05-27] MEDS: Bumetanide 1 MG TABLET PO SCH ×2 (08:03→16:12)
[2022-05-27] MEDS: Isosorbide MONOnitrate (24 HR) 30 MG TAB.ER.24H PO SCH (08:03)
[2022-05-27] MEDS: Magnesium Oxide 400 MG TABLET PO SCH ×2 (08:03→19:53)
[2022-05-27] MEDS: atenoloL 25 MG TABLET PO SCH ×2 (08:04→19:54)
[2022-05-27] MEDS: Nystatin POWDER 30 GM BOTTLE TP SCH ×2 (08:05→19:54)
[2022-05-27] MEDS: Fluticasone Propionate Nasal 50 MCG/SPRAY BOTTLE NS SCH (08:06)
[2022-05-27 08:48] LABS: Basophils % 0.6 %; Eosinophils # 0.3 K/mcL (0.0-0.6); Eosinophils % 3.9 %; Hematocrit 41.3 % (35.3-44.9); Hemoglobin 13.2 g/dL (11.5-15.4); Immature Granulocytes % 0.3 % (0-4); Lymphocytes # 1.6 K/mcL (0.6-4.6); Mean Corpuscular Hemoglobin 29.5 pg (28.0-33.3); Mean Corpuscular Volume 92.4 fL (83.0-100.0); Mean Platelet Volume 11.8 fL (9.4-12.4); Monocytes # 0.4 K/mcL (0.0-1.3); Monocytes % 6.5 %; Neutrophils # 4.4 K/mcL (1.6-8.9); Platelet Count 216 K/mcL (140-400); Red Blood Count 4.47 M/mcL (3.82-4.97); Red Cell Distribution Width 12.5 % (11.5-14.5); Segmented Neutrophils % 64.7 %; White Blood Count 6.7 K/mcL (4.3-11.1)
[2022-05-27 09:01] LABS: Calcium 9.2 mg/dL (8.6-10.3); Magnesium 1.7 mg/dL (1.6-2.6)
[2022-05-27] MEDS: *HR* HYDROcodone/Acet 7.5/325 mg TABLET PO PRN (20:11)
[2022-05-28] MEDS: Magnesium Oxide 400 MG TABLET PO SCH ×2 (07:39→19:56)
[2022-05-28] MEDS: Bumetanide 1 MG TABLET PO SCH ×2 (07:39→16:19)
[2022-05-28] MEDS: Isosorbide MONOnitrate (24 HR) 30 MG TAB.ER.24H PO SCH (07:40)
[2022-05-28] MEDS: atenoloL 25 MG TABLET PO SCH ×2 (07:40→19:57)
[2022-05-28] MEDS: Apixaban 5 MG TABLET PO SCH ×2 (07:40→19:57)
[2022-05-28] MEDS: Lactobacillus 1 EACH CAP.SPRINK PO SCH (07:40)
[2022-05-28] MEDS: *HR* HYDROcodone/Acet 7.5/325 mg TABLET PO PRN ×2 (07:40→21:09)
[2022-05-28] MEDS: Nystatin POWDER 30 GM BOTTLE TP SCH ×2 (07:41→19:58)
[2022-05-28] MEDS: Fluticasone Propionate Nasal 50 MCG/SPRAY BOTTLE NS SCH (07:41)
[2022-05-28] MEDS: Melatonin 3 MG TABLET PO PRN (19:57)
[2022-05-29] MEDS: Bumetanide 1 MG TABLET PO SCH ×2 (08:09→16:27)
[2022-05-29] MEDS: Magnesium Oxide 400 MG TABLET PO SCH ×2 (08:09→20:46)
[2022-05-29] MEDS: Lactobacillus 1 EACH CAP.SPRINK PO SCH (08:10)
[2022-05-29] MEDS: Apixaban 5 MG TABLET PO SCH ×2 (08:10→20:46)
[2022-05-29] MEDS: Isosorbide MONOnitrate (24 HR) 30 MG TAB.ER.24H PO SCH (08:10)
[2022-05-29] MEDS: atenoloL 25 MG TABLET PO SCH ×2 (08:10→20:45)
[2022-05-29] MEDS: *HR* HYDROcodone/Acet 7.5/325 mg TABLET PO PRN ×2 (08:10→20:45)
[2022-05-29] MEDS: Nystatin POWDER 30 GM BOTTLE TP SCH ×2 (08:11→20:46)
[2022-05-29] MEDS: Fluticasone Propionate Nasal 50 MCG/SPRAY BOTTLE NS SCH (08:13)
[2022-05-29] MEDS: MOM Conc 10 ML UD.LIQ PO PRN (17:44)
[2022-05-29] MEDS: Melatonin 3 MG TABLET PO PRN (20:46)
[2022-05-30] MEDS: Ondansetron ODT 4 MG TAB.RAPDIS SL PRN (06:34)
[2022-05-30] MEDS: Isosorbide MONOnitrate (24 HR) 30 MG TAB.ER.24H PO SCH (07:59)
[2022-05-30] MEDS: Magnesium Oxide 400 MG TABLET PO SCH ×2 (07:59→22:09)
[2022-05-30] MEDS: Bumetanide 1 MG TABLET PO SCH ×2 (07:59→16:40)
[2022-05-30] MEDS: atenoloL 25 MG TABLET PO SCH ×2 (07:59→22:10)
[2022-05-30] MEDS: Apixaban 5 MG TABLET PO SCH ×2 (08:00→22:09)
[2022-05-30] MEDS: Nystatin POWDER 30 GM BOTTLE TP SCH ×2 (08:00→22:11)
[2022-05-30] MEDS: Lactobacillus 1 EACH CAP.SPRINK PO SCH (08:00)
[2022-05-30] MEDS: Fluticasone Propionate Nasal 50 MCG/SPRAY BOTTLE NS SCH (08:00)
[2022-05-30 09:23] LABS: Calcium 8.9 mg/dL (8.6-10.3); Potassium 3.5 mEq/L (3.5-5.1)
[2022-05-30] MEDS: polyethylene glycoL 3350 17 GM POWD.PACK PO PRN (09:56)
[2022-05-30] MEDS ORDERED: Milk and Molasses Enema 200 ML RC ONE (14:41)
[2022-05-30] MEDS ORDERED: *HR* Promethazine 25 MG/ML VIAL IM PRN (15:35)
[2022-05-30] MEDS: Melatonin 3 MG TABLET PO PRN (22:08)
[2022-05-30] MEDS: *HR* HYDROcodone/Acet 7.5/325 mg TABLET PO PRN (22:10)
[2022-05-31] MEDS: Bumetanide 1 MG TABLET PO SCH ×2 (10:17→17:39)
[2022-05-31] MEDS: Magnesium Oxide 400 MG TABLET PO SCH ×2 (10:17→20:22)
[2022-05-31] MEDS: Nystatin POWDER 30 GM BOTTLE TP SCH ×2 (10:18→20:22)
[2022-05-31] MEDS: Apixaban 5 MG TABLET PO SCH ×2 (10:18→20:22)
[2022-05-31] MEDS: atenoloL 25 MG TABLET PO SCH ×2 (10:18→20:22)
[2022-05-31] MEDS: Lactobacillus 1 EACH CAP.SPRINK PO SCH (10:18)
[2022-05-31] MEDS: Isosorbide MONOnitrate (24 HR) 30 MG TAB.ER.24H PO SCH (10:18)
[2022-05-31] MEDS: Fluticasone Propionate Nasal 50 MCG/SPRAY BOTTLE NS SCH (10:19)
[2022-05-31] MEDS: MOM Conc 10 ML UD.LIQ PO PRN (13:17)
[2022-05-31] MEDS: polyethylene glycoL 3350 17 GM POWD.PACK PO PRN (18:39)
[2022-06-01] MEDS: Isosorbide MONOnitrate (24 HR) 30 MG TAB.ER.24H PO SCH (09:19)
[2022-06-01] MEDS: Apixaban 5 MG TABLET PO SCH ×2 (09:19→20:16)
[2022-06-01] MEDS: atenoloL 25 MG TABLET PO SCH ×2 (09:19→20:16)
[2022-06-01] MEDS: Acetaminophen 325 MG TABLET PO PRN ×2 (09:20→16:08)
[2022-06-01] MEDS: Bumetanide 1 MG TABLET PO SCH ×2 (09:20→16:09)
[2022-06-01] MEDS: Magnesium Oxide 400 MG TABLET PO SCH ×2 (09:20→20:16)
[2022-06-01] MEDS: Fluticasone Propionate Nasal 50 MCG/SPRAY BOTTLE NS SCH (09:21)
[2022-06-01] MEDS: Lactobacillus 1 EACH CAP.SPRINK PO SCH (09:21)
[2022-06-01] MEDS: Nystatin POWDER 30 GM BOTTLE TP SCH ×2 (09:21→20:16)
[2022-06-02] MEDS: Isosorbide MONOnitrate (24 HR) 30 MG TAB.ER.24H PO SCH (08:18)
[2022-06-02] MEDS: Lactobacillus 1 EACH CAP.SPRINK PO SCH (08:18)
[2022-06-02] MEDS: Magnesium Oxide 400 MG TABLET PO SCH ×2 (08:18→20:56)
[2022-06-02] MEDS: Bumetanide 1 MG TABLET PO SCH ×2 (08:19→15:53)
[2022-06-02] MEDS: atenoloL 25 MG TABLET PO SCH ×2 (08:19→20:56)
[2022-06-02] MEDS: Apixaban 5 MG TABLET PO SCH ×2 (08:19→20:56)
[2022-06-02] MEDS: Fluticasone Propionate Nasal 50 MCG/SPRAY BOTTLE NS SCH (08:20)
[2022-06-02] MEDS: Nystatin POWDER 30 GM BOTTLE TP SCH ×2 (08:20→20:57)
[2022-06-02] MEDS: Loratadine 10 MG TABLET PO PRN (20:55)
[2022-06-02] MEDS: Melatonin 3 MG TABLET PO PRN (20:56)
[2022-06-03 07:50] LABS: Basophils # 0.1 K/mcL (0.0-0.2); Basophils % 0.8 %; Eosinophils # 0.2 K/mcL (0.0-0.6); Hematocrit 38.3 % (35.3-44.9); Hemoglobin 12.1 g/dL (11.5-15.4); Immature Granulocytes % 0.3 % (0-4); Lymphocytes # 1.6 K/mcL (0.6-4.6); Lymphocytes % 25.8 %; Mean Corpuscular HGB Conc 31.6 g/dL (31.6-35.5); Mean Corpuscular Hemoglobin 29.7 pg (28.0-33.3); Mean Corpuscular Volume 93.9 fL (83.0-100.0); Mean Platelet Volume 11.1 fL (9.4-12.4); Monocytes # 0.4 K/mcL (0.0-1.3); Platelet Count 174 K/mcL (140-400); Red Blood Count 4.08 M/mcL (3.82-4.97); Segmented Neutrophils % 63.1 %; White Blood Count 6.3 K/mcL (4.3-11.1)
[2022-06-03] MEDS: Magnesium Oxide 400 MG TABLET PO SCH ×2 (07:52→20:50)
[2022-06-03] MEDS: Apixaban 5 MG TABLET PO SCH ×2 (07:52→20:50)
[2022-06-03] MEDS: Lactobacillus 1 EACH CAP.SPRINK PO SCH (07:52)
[2022-06-03] MEDS: atenoloL 25 MG TABLET PO SCH ×2 (07:52→20:51)
[2022-06-03] MEDS: Bumetanide 1 MG TABLET PO SCH ×2 (07:53→16:36)
[2022-06-03] MEDS: Isosorbide MONOnitrate (24 HR) 30 MG TAB.ER.24H PO SCH (07:53)
[2022-06-03] MEDS: Fluticasone Propionate Nasal 50 MCG/SPRAY BOTTLE NS SCH (07:54)
[2022-06-03] MEDS: Nystatin POWDER 30 GM BOTTLE TP SCH ×2 (07:55→20:52)
[2022-06-03 08:21] LABS: Calcium 9.1 mg/dL (8.6-10.3); Magnesium 1.8 mg/dL (1.6-2.6); Potassium 3.6 mEq/L (3.5-5.1)
[2022-06-03 15:54] LABS: Estimated Average Glucose 143 mg/dl; Hemoglobin A1C 6.6 %
[2022-06-03] MEDS: Melatonin 3 MG TABLET PO PRN (20:50)
[2022-06-03] MEDS: Acetaminophen 325 MG TABLET PO PRN (20:51)
[2022-06-03] MEDS: Loratadine 10 MG TABLET PO PRN (20:51)
[2022-06-04] MEDS: atenoloL 25 MG TABLET PO SCH ×2 (07:35→22:37)
[2022-06-04] MEDS: Magnesium Oxide 400 MG TABLET PO SCH ×2 (07:36→22:37)
[2022-06-04] MEDS: Bumetanide 1 MG TABLET PO SCH ×2 (07:36→16:36)
[2022-06-04] MEDS: Isosorbide MONOnitrate (24 HR) 30 MG TAB.ER.24H PO SCH (07:36)
[2022-06-04] MEDS: Lactobacillus 1 EACH CAP.SPRINK PO SCH (07:37)
[2022-06-04] MEDS: Apixaban 5 MG TABLET PO SCH ×2 (07:37→22:37)
[2022-06-04] MEDS: Fluticasone Propionate Nasal 50 MCG/SPRAY BOTTLE NS SCH (07:38)
[2022-06-04] MEDS: Nystatin POWDER 30 GM BOTTLE TP SCH ×2 (07:38→22:38)
[2022-06-04] MEDS: Loratadine 10 MG TABLET PO PRN (22:37)
[2022-06-04] MEDS: Acetaminophen 325 MG TABLET PO PRN (22:38)
[2022-06-04] MEDS: Melatonin 3 MG TABLET PO PRN (22:38)
[2022-06-05] MEDS ORDERED: *HR* Dextrose 50 % in Water (Syg) 50 ML SYRINGE IVP PRN (07:11)
[2022-06-05] MEDS ORDERED: D5% in Water 1,000 ML IVC PRN (07:11)
[2022-06-05] MEDS ORDERED: Dextrose Gel 15 GM/37.5 ML TUBE PO PRN ×2 (07:11)
[2022-06-05] MEDS: Magnesium Oxide 400 MG TABLET PO SCH ×2 (09:06→21:24)
[2022-06-05] MEDS: Insulin LISPRO 300 UNITS/3 ML VIAL SUBQ SCH ×4 (09:06→21:28)
[2022-06-05] MEDS: Bumetanide 1 MG TABLET PO SCH ×2 (09:06→16:31)
[2022-06-05] MEDS: atenoloL 25 MG TABLET PO SCH ×2 (09:06→21:25)
[2022-06-05] MEDS: Lactobacillus 1 EACH CAP.SPRINK PO SCH (09:06)
[2022-06-05] MEDS: Isosorbide MONOnitrate (24 HR) 30 MG TAB.ER.24H PO SCH (09:07)
[2022-06-05] MEDS: Apixaban 5 MG TABLET PO SCH ×2 (09:08→21:24)
[2022-06-05] MEDS: Nystatin POWDER 30 GM BOTTLE TP SCH ×2 (09:12→21:26)
[2022-06-05] MEDS: Fluticasone Propionate Nasal 50 MCG/SPRAY BOTTLE NS SCH (09:12)
[2022-06-05] MEDS: Melatonin 3 MG TABLET PO PRN (21:25)
[2022-06-05] MEDS: Loratadine 10 MG TABLET PO PRN (22:42)
[2022-06-06] MEDS: *HR* HYDROcodone/Acet 7.5/325 mg TABLET PO PRN (06:56)
[2022-06-06] MEDS: Bumetanide 1 MG TABLET PO SCH ×2 (09:33→15:46)
[2022-06-06] MEDS: Apixaban 5 MG TABLET PO SCH ×2 (09:33→19:41)
[2022-06-06] MEDS: Isosorbide MONOnitrate (24 HR) 30 MG TAB.ER.24H PO SCH (09:33)
[2022-06-06] MEDS: Lactobacillus 1 EACH CAP.SPRINK PO SCH (09:33)
[2022-06-06] MEDS: Nystatin POWDER 30 GM BOTTLE TP SCH ×2 (09:34→19:42)
[2022-06-06] MEDS: Fluticasone Propionate Nasal 50 MCG/SPRAY BOTTLE NS SCH (09:34)
[2022-06-06] MEDS: Magnesium Oxide 400 MG TABLET PO SCH ×2 (09:34→19:41)
[2022-06-06] MEDS: atenoloL 25 MG TABLET PO SCH ×2 (09:34→19:41)
[2022-06-06] MEDS: Insulin LISPRO 300 UNITS/3 ML VIAL SUBQ SCH ×4 (11:13→19:42)
[2022-06-06] MEDS: Loratadine 10 MG TABLET PO PRN (22:44)
[2022-06-06] MEDS: Melatonin 3 MG TABLET PO PRN (22:44)
[2022-06-07] MEDS: Bumetanide 1 MG TABLET PO SCH ×2 (09:40→16:49)
[2022-06-07] MEDS: *HR* Metformin 500 MG TABLET PO SCH (09:40)
[2022-06-07] MEDS: Magnesium Oxide 400 MG TABLET PO SCH ×2 (09:41→20:52)
[2022-06-07] MEDS: atenoloL 25 MG TABLET PO SCH ×2 (09:41→20:52)
[2022-06-07] MEDS: Apixaban 5 MG TABLET PO SCH ×2 (09:41→20:52)
[2022-06-07] MEDS: Lactobacillus 1 EACH CAP.SPRINK PO SCH (09:41)
[2022-06-07] MEDS: Isosorbide MONOnitrate (24 HR) 30 MG TAB.ER.24H PO SCH (09:41)
[2022-06-07] MEDS: Nystatin POWDER 30 GM BOTTLE TP SCH ×2 (09:42→20:52)
[2022-06-07] MEDS: Insulin LISPRO 300 UNITS/3 ML VIAL SUBQ SCH ×4 (11:13→20:53)
[2022-06-07] MEDS: Fluticasone Propionate Nasal 50 MCG/SPRAY BOTTLE NS SCH (11:14)
[2022-06-07] MEDS: Acetaminophen 325 MG TABLET PO PRN (23:55)
[2022-06-07] MEDS: Loratadine 10 MG TABLET PO PRN (23:56)
[2022-06-07] MEDS: Melatonin 3 MG TABLET PO PRN (23:56)
[2022-06-08] MEDS: Insulin LISPRO 300 UNITS/3 ML VIAL SUBQ SCH ×4 (07:18→20:47)
[2022-06-08] MEDS: Lactobacillus 1 EACH CAP.SPRINK PO SCH (08:32)
[2022-06-08] MEDS: atenoloL 25 MG TABLET PO SCH ×2 (08:33→20:48)
[2022-06-08] MEDS: Apixaban 5 MG TABLET PO SCH ×2 (08:33→20:48)
[2022-06-08] MEDS: Bumetanide 1 MG TABLET PO SCH ×2 (08:33→16:28)
[2022-06-08] MEDS: Magnesium Oxide 400 MG TABLET PO SCH ×2 (08:33→20:48)
[2022-06-08] MEDS: Isosorbide MONOnitrate (24 HR) 30 MG TAB.ER.24H PO SCH (08:33)
[2022-06-08] MEDS: *HR* Metformin 500 MG TABLET PO SCH (08:33)
[2022-06-08] MEDS: Fluticasone Propionate Nasal 50 MCG/SPRAY BOTTLE NS SCH (08:34)
[2022-06-08] MEDS: Nystatin POWDER 30 GM BOTTLE TP SCH ×2 (08:34→20:45)
[2022-06-08] MEDS: *HR* HYDROcodone/Acet 7.5/325 mg TABLET PO PRN (08:35)
[2022-06-09] MEDS: Insulin LISPRO 300 UNITS/3 ML VIAL SUBQ SCH ×4 (09:03→22:04)
[2022-06-09] MEDS: *HR* Metformin 500 MG TABLET PO SCH (09:04)
[2022-06-09] MEDS: Isosorbide MONOnitrate (24 HR) 30 MG TAB.ER.24H PO SCH (09:04)
[2022-06-09] MEDS: Bumetanide 1 MG TABLET PO SCH ×2 (09:04→16:54)
[2022-06-09] MEDS: Apixaban 5 MG TABLET PO SCH ×2 (09:04→21:55)
[2022-06-09] MEDS: Lactobacillus 1 EACH CAP.SPRINK PO SCH (09:05)
[2022-06-09] MEDS: atenoloL 25 MG TABLET PO SCH ×2 (09:05→21:55)
[2022-06-09] MEDS: Magnesium Oxide 400 MG TABLET PO SCH ×2 (09:05→21:55)
[2022-06-09] MEDS: Nystatin POWDER 30 GM BOTTLE TP SCH ×2 (09:06→23:06)
[2022-06-09] MEDS: Fluticasone Propionate Nasal 50 MCG/SPRAY BOTTLE NS SCH (09:06)
[2022-06-09] MEDS: Loratadine 10 MG TABLET PO PRN (09:20)
[2022-06-10] MEDS: Insulin LISPRO 300 UNITS/3 ML VIAL SUBQ SCH ×4 (08:45→21:04)
[2022-06-10] MEDS: Apixaban 5 MG TABLET PO SCH ×2 (09:01→21:03)
[2022-06-10] MEDS: Lactobacillus 1 EACH CAP.SPRINK PO SCH (09:01)
[2022-06-10] MEDS: *HR* Metformin 500 MG TABLET PO SCH (09:01)
[2022-06-10] MEDS: Bumetanide 1 MG TABLET PO SCH ×2 (09:01→16:10)
[2022-06-10] MEDS: Magnesium Oxide 400 MG TABLET PO SCH ×2 (09:02→21:03)
[2022-06-10] MEDS: atenoloL 25 MG TABLET PO SCH ×2 (09:02→21:00)
[2022-06-10] MEDS: Nystatin POWDER 30 GM BOTTLE TP SCH ×2 (09:03→21:03)
[2022-06-10] MEDS: Fluticasone Propionate Nasal 50 MCG/SPRAY BOTTLE NS SCH (09:03)
[2022-06-10] MEDS: Isosorbide MONOnitrate (24 HR) 30 MG TAB.ER.24H PO SCH (09:04)
[2022-06-10] MEDS: Loratadine 10 MG TABLET PO PRN (09:13)
[2022-06-10] MEDS: *HR* HYDROcodone/Acet 7.5/325 mg TABLET PO PRN (14:02)
[2022-06-10] MEDS: Melatonin 3 MG TABLET PO PRN (21:01)
[2022-06-11] MEDS: Insulin LISPRO 300 UNITS/3 ML VIAL SUBQ SCH ×4 (10:01→20:29)
[2022-06-11] MEDS: Apixaban 5 MG TABLET PO SCH ×2 (10:02→20:57)
[2022-06-11] MEDS: Isosorbide MONOnitrate (24 HR) 30 MG TAB.ER.24H PO SCH (10:02)
[2022-06-11] MEDS: Lactobacillus 1 EACH CAP.SPRINK PO SCH (10:02)
[2022-06-11] MEDS: *HR* Metformin 500 MG TABLET PO SCH (10:03)
[2022-06-11] MEDS: Bumetanide 1 MG TABLET PO SCH ×2 (10:03→16:44)
[2022-06-11] MEDS: Fluticasone Propionate Nasal 50 MCG/SPRAY BOTTLE NS SCH (10:03)
[2022-06-11] MEDS: Magnesium Oxide 400 MG TABLET PO SCH ×2 (10:03→20:57)
[2022-06-11] MEDS: atenoloL 25 MG TABLET PO SCH ×2 (10:03→20:57)
[2022-06-11] MEDS: Nystatin POWDER 30 GM BOTTLE TP SCH ×2 (10:04→21:04)
[2022-06-12] MEDS: Bumetanide 1 MG TABLET PO SCH ×2 (08:43→15:38)
[2022-06-12] MEDS: Loratadine 10 MG TABLET PO PRN (08:43)
[2022-06-12] MEDS: Lactobacillus 1 EACH CAP.SPRINK PO SCH (08:44)
[2022-06-12] MEDS: Fluticasone Propionate Nasal 50 MCG/SPRAY BOTTLE NS SCH (08:44)
[2022-06-12] MEDS: Isosorbide MONOnitrate (24 HR) 30 MG TAB.ER.24H PO SCH (08:44)
[2022-06-12] MEDS: Apixaban 5 MG TABLET PO SCH ×2 (08:44→20:54)
[2022-06-12] MEDS: Magnesium Oxide 400 MG TABLET PO SCH ×3 (08:44→20:56)
[2022-06-12] MEDS: *HR* Metformin 500 MG TABLET PO SCH (08:44)
[2022-06-12] MEDS: atenoloL 25 MG TABLET PO SCH ×2 (08:44→20:57)
[2022-06-12] MEDS: Insulin LISPRO 300 UNITS/3 ML VIAL SUBQ SCH ×4 (08:45→20:07)
[2022-06-12] MEDS: Nystatin POWDER 30 GM BOTTLE TP SCH ×2 (08:45→20:58)
[2022-06-12] MEDS: Acetaminophen 325 MG TABLET PO PRN (15:42)
[2022-06-12] MEDS: Melatonin 3 MG TABLET PO PRN (20:55)
[2022-06-12] MEDS: *HR* HYDROcodone/Acet 7.5/325 mg TABLET PO PRN (20:55)
[2022-06-13] MEDS: Insulin LISPRO 300 UNITS/3 ML VIAL SUBQ SCH ×4 (08:48→21:20)
[2022-06-13] MEDS: Isosorbide MONOnitrate (24 HR) 30 MG TAB.ER.24H PO SCH (09:41)
[2022-06-13] MEDS: Bumetanide 1 MG TABLET PO SCH ×2 (09:41→17:13)
[2022-06-13] MEDS: Lactobacillus 1 EACH CAP.SPRINK PO SCH (09:41)
[2022-06-13] MEDS: Magnesium Oxide 400 MG TABLET PO SCH ×2 (09:42→21:20)
[2022-06-13] MEDS: *HR* Metformin 500 MG TABLET PO SCH (09:42)
[2022-06-13] MEDS: Apixaban 5 MG TABLET PO SCH ×2 (09:42→21:17)
[2022-06-13] MEDS: atenoloL 25 MG TABLET PO SCH ×2 (09:42→21:19)
[2022-06-13] MEDS: Fluticasone Propionate Nasal 50 MCG/SPRAY BOTTLE NS SCH (09:43)
[2022-06-13] MEDS: Nystatin POWDER 30 GM BOTTLE TP SCH ×2 (09:44→21:20)
[2022-06-13] MEDS: Loratadine 10 MG TABLET PO PRN (10:34)
[2022-06-13] MEDS: Melatonin 3 MG TABLET PO PRN (21:17)
[2022-06-14] MEDS: Insulin LISPRO 300 UNITS/3 ML VIAL SUBQ SCH ×4 (08:19→21:18)
[2022-06-14] MEDS: atenoloL 25 MG TABLET PO SCH ×2 (09:38→21:16)
[2022-06-14] MEDS: *HR* Metformin 500 MG TABLET PO SCH (09:38)
[2022-06-14] MEDS: Isosorbide MONOnitrate (24 HR) 30 MG TAB.ER.24H PO SCH (09:38)
[2022-06-14] MEDS: Apixaban 5 MG TABLET PO SCH ×2 (09:39→21:17)
[2022-06-14] MEDS: Bumetanide 1 MG TABLET PO SCH ×2 (09:39→16:41)
[2022-06-14] MEDS: Magnesium Oxide 400 MG TABLET PO SCH ×2 (09:39→21:15)
[2022-06-14] MEDS: Lactobacillus 1 EACH CAP.SPRINK PO SCH (09:39)
[2022-06-14] MEDS: Loratadine 10 MG TABLET PO PRN (09:40)
[2022-06-14] MEDS: Acetaminophen 325 MG TABLET PO PRN (09:40)
[2022-06-14] MEDS: Nystatin POWDER 30 GM BOTTLE TP SCH ×2 (09:43→21:18)
[2022-06-14] MEDS: Fluticasone Propionate Nasal 50 MCG/SPRAY BOTTLE NS SCH (09:44)
[2022-06-14] MEDS: Melatonin 3 MG TABLET PO PRN (21:17)
[2022-06-15] MEDS: *HR* HYDROcodone/Acet 7.5/325 mg TABLET PO PRN ×2 (02:47→19:10)
[2022-06-15] MEDS: Bumetanide 1 MG TABLET PO SCH ×2 (08:53→16:38)
[2022-06-15] MEDS: Magnesium Oxide 400 MG TABLET PO SCH ×2 (08:53→19:07)
[2022-06-15] MEDS: Isosorbide MONOnitrate (24 HR) 30 MG TAB.ER.24H PO SCH (08:53)
[2022-06-15] MEDS: Lactobacillus 1 EACH CAP.SPRINK PO SCH (08:53)
[2022-06-15] MEDS: Loratadine 10 MG TABLET PO PRN (08:54)
[2022-06-15] MEDS: *HR* Metformin 500 MG TABLET PO SCH (08:54)
[2022-06-15] MEDS: Apixaban 5 MG TABLET PO SCH ×2 (08:54→19:08)
[2022-06-15] MEDS: atenoloL 25 MG TABLET PO SCH ×2 (08:54→19:07)
[2022-06-15] MEDS: Acetaminophen 325 MG TABLET PO PRN (08:55)
[2022-06-15] MEDS: Nystatin POWDER 30 GM BOTTLE TP SCH ×2 (08:57→19:08)
[2022-06-15] MEDS: Fluticasone Propionate Nasal 50 MCG/SPRAY BOTTLE NS SCH (08:57)
[2022-06-15] MEDS: Insulin LISPRO 300 UNITS/3 ML VIAL SUBQ SCH ×4 (09:00→19:08)
[2022-06-15 18:45] VITALS: BP 123/66; PULSE 80; RESP 16; TEMP 98.3; O2SAT 96
== END 2022-06-15 23:59 | disposition other institution (70) | DRG 603 ==
LOC: INPPIK 18:09 → SUATTDRO 18:09
PROVIDERS: ADMIT Internal Medicine; ATTEND Family Medicine